=== PATIENT | female | born 1975 | race Caucasian/White ===

== ENCOUNTER 2017-10-02 10:11 | Emergency (ER) | payer MEDICARE, SELFPAY | END 2017-10-02 11:11 | disposition home or self-care (01) | PROVIDERS: Family Provider Nurse Practitioner Family | DX: J18.9 Pneumonia, unspecified organism (principal); Z90.49 Acquired absence of other specified parts of digestive tract; Z90.710 Acquired absence of both cervix and uterus; I25.10 Atherosclerotic heart disease of native coronary artery without angina pectoris; J45.909 Unspecified asthma, uncomplicated | CPT/HCPCS: 71020; 99201 ==

== ENCOUNTER 2017-11-06 09:29 | Emergency (ER) | payer MEDICARE, MEDICAID, SELFPAY ==
[2017-11-06 09:30] VITALS: BP 150/72; PULSE 98; RESP 18; TEMP 36.9; O2SAT 98; BMI 35.6
--- NOTE | 2017-11-06 09:45 | HMH.EDUTC ---
[facility] [facility] [place]: Upper respiratory infection Disposition: Home, Self-Care Condition on Discharge: Good Instructions: Cough, DI for Cough -- Adult, Guaifenesin Additional Instructions: * Monitor Temp. Tylenol and/or Ibuprofen as needed. ER if fever is no less than 101 despite alternating Tylenol and Ibuprofen * Encourage fluids, water, Gatorade, powerade, pedialyte if infant/toddler/or child * Warm salt water gargles for throat irritation *Warm fluids *Sore throat lozenges *Sleep elevated *humidifier or vaporizer Lots of rest Increase fluids, water, Gatorade, powerade Follow up IMMEDIATELY for new or worsening of symptoms OR no noticeable improvement over the next 48-72 hours. 911 immediately for any life threatening symptoms such as chest pain or difficulty breathing Prescriptions: Azithromycin [Z-Golden 250mg Tab] 250 mg PO UD DOSE PK #6 tab Guaifenesin/Pseudoephedrne HCl [Mucinex D ER 1,200-120 mg Tab] 1 each PO Q12H #20 tab.er.12h predniSONE [Prednisone 10mg Tab Dose-Pack] 10 mg PO UD DOSE PK #1 pack Promethazine/Dextromethorphan [Promethazine-Dm Syrup] 5 ml PO Q6H PRN #200 syrup PRN Reason: Cough Referrals: Adamaris Travis APRN [Primary Care Provider] - Time of Disposition: 09:58 Medical Decision Making - Medical Records Medical records reviewed: Yes: I reviewed the patient's medical records. Vital Signs: 11/06/17 09:30 Temperature 98.5 F Temperature Source Oral Pulse Rate [Left Brachial] 98 H Respiratory Rate 18 Blood Pressure [Right Arm] 150/72 Blood Pressure Mean [Right Arm] 98 Blood Pressure Source [Right Arm] Automatic Cuff Blood Pressure Position [Right Arm] Sitting 02 Sat by Pulse Oximetry 98 Oxygen Delivery Method Room Air - Hermilo Inquiry Pt receiving controlled substance: No Hermilo was queried for this patient: No - Reevaluation(s) Time: 09:52 (Recommended chest xray however paitnet refusing at this time states that she just had one a couple of weeks ago and she doesn't want to be exposed to that much radiation Patient educated on xrays and still refuse advised that she would follow up with family doctor next week if symptoms continued to feel like they was moving to her chest) [facility] [place] General Stated complaint: sinus,ear,sob Mode of Arrival: Ambulatory Source of Information: Patient Limitations: No Limitations Description of Symptoms (Recalled from Triage Doc. by RN): Pt advises she feels like she has an URI. c/o cough, ear pain HEENT Symptoms (Recalled from RN notes): No Resp Symptoms (Recalled from RN notes): Yes Skin Symptoms (Recalled from RN notes): No MS Symptoms (Recalled from RN notes): No Functional Status (Recalled from RN notes): NA - History of Present Illness Provider Complaint: Patient state that she has been having sinus pain and pressure and feeling like it is running down the back of her throat State that she has been having cough and congestion and over all not feeling well States symptoms began about 2-3 days ago and continued to get worse - Related Data Previous Rx's Medication Instructions Recorded Azithromycin [Z-Golden 250mg Tab] 250 mg PO UD DOSE PK #6 tab 11/06/17 Guaifenesin/Pseudoephedrne HCl 1 each PO Q12H #20 tab.er.12h 11/06/17 [Mucinex D ER 1,200-120 mg Tab] Promethazine/Dextromethorphan 5 ml PO Q6H PRN #200 syrup 11/06/17 [Promethazine-Dm Syrup] predniSONE [Prednisone 10mg Tab 10 mg PO UD DOSE PK #1 pack 11/06/17 Dose-Pack] Allergies Allergy/AdvReac Type Severity Reaction Status Date / Time pregabalin [From LYRICA] Allergy Mild Verified 11/06/17 09:43 - Worker's Comp Is this a Worker's Comp case?: No [facility] History I have reviewed the patient's past medical history: Yes Medical History: Denies:: Cancer, Diabetes Mellitus Type 1, Diabetes Mellitus Type 2, MRSA Amputation: No - *Social History Alcohol Intake: never - Psychiatric History Expresses thoughts of harming self/others: None Suicide Plan
--- NOTE | 2017-11-06 09:49 | ED_ITS ---
[facility] [place] Impression: Upper respiratory infection Disposition: Home, Self-Care Condition on Discharge: Good Instructions: Cough, DI for Cough -- Adult, Guaifenesin Additional Instructions: * Monitor Temp. Tylenol and/or Ibuprofen as needed. ER if fever is no less than 101 despite alternating Tylenol and Ibuprofen * Encourage fluids, water, Gatorade, powerade, pedialyte if infant/toddler/or child * Warm salt water gargles for throat irritation *Warm fluids *Sore throat lozenges *Sleep elevated *humidifier or vaporizer Lots of rest Increase fluids, water, Gatorade, powerade Follow up IMMEDIATELY for new or worsening of symptoms OR no noticeable improvement over the next 48-72 hours. 911 immediately for any life threatening symptoms such as chest pain or difficulty breathing Prescriptions: Azithromycin [Z-Golden 250mg Tab] 250 mg PO UD DOSE PK #6 tab Guaifenesin/Pseudoephedrne HCl [Mucinex D ER 1,200-120 mg Tab] 1 each PO Q12H # 20 tab.er.12h predniSONE [Prednisone 10mg Tab Dose-Pack] 10 mg PO UD DOSE PK #1 pack Promethazine/Dextromethorphan [Promethazine-Dm Syrup] 5 ml PO Q6H PRN #200 syrup PRN Reason: Cough Referrals: Adamaris Travis APRN [Primary Care Provider] - Time of Disposition: 09:58 Medical Decision Making - Medical Records Medical records reviewed: Yes: I reviewed the patient's medical records. Vital Signs: 11/06/17 09:30 Temperature 98.5 F Temperature Source Oral Pulse Rate [Left Brachial] 98 H Respiratory Rate 18 Blood Pressure [Right Arm] 150/72 Blood Pressure Mean [Right Arm] 98 Blood Pressure Source [Right Arm] Automatic Cuff Blood Pressure Position [Right Arm] Sitting 02 Sat by Pulse Oximetry 98 Oxygen Delivery Method Room Air - Hermilo Inquiry Pt receiving controlled substance: No Hermilo was queried for this patient: No - Reevaluation(s) Time: 09:52 (Recommended chest xray however paitnet refusing at this time states that she just had one a couple of weeks ago and she doesn't want to be exposed to that much radiation Patient educated on xrays and still refuse advised that she would follow up with family doctor next week if symptoms continued to feel like they was moving to her chest) [facility] [place] - General Stated complaint: sinus,ear,sob Mode of Arrival: Ambulatory Source of Information: Patient Limitations: No Limitations Description of Symptoms (Recalled from Triage Doc. by RN): Pt advises she feels like she has an URI. c/o cough, ear pain HEENT Symptoms (Recalled from RN notes): No Resp Symptoms (Recalled from RN notes): Yes Skin Symptoms (Recalled from RN notes): No MS Symptoms (Recalled from RN notes): No Functional Status (Recalled from RN notes): NA - History of Present Illness Provider Complaint: Patient state that she has been having sinus pain and pressure and feeling like it is running down the back of her throat State that she has been having cough and congestion and over all not feeling well States symptoms began about 2-3 days ago and continued to get worse - Related Data Previous Rx's Medication Instructions Recorded Azithromycin [Z-Golden 250mg Tab] 250 mg PO UD DOSE PK #6 tab 11/06/17 Guaifenesin/Pseudoephedrne HCl 1 each PO Q12H #20 tab.er.12h 11/06/17 [Mucinex D ER 1,200-120 mg Tab] Promethazine/Dextromethorphan 5 ml PO Q6H PRN #200 syrup 11/06/17 [Promethazine-Dm Syrup] predniSONE [Prednisone 10mg Tab 10 mg PO UD DOSE PK #1 pack 01
== END 2017-11-06 10:03 | disposition home or self-care (01) ==
PROVIDERS: Emergency Provider Nurse Practitioner; Family Provider Nurse Practitioner Family; PCP Nurse Practitioner Family
DX: J06.9 Acute upper respiratory infection, unspecified (principal)
CPT/HCPCS: G0463; 99201

== ENCOUNTER 2017-12-09 18:46 | Emergency (ER) | payer MEDICARE, MEDICAID, SELFPAY ==
[2017-12-09 18:56] VITALS: BP 136/86; PULSE 103; RESP 20; TEMP 36.2; O2SAT 95; BMI 34.6
--- NOTE | 2017-12-09 19:00 | HMH.EDUTC ---
[facility] [place] Clinical Impression: Vomiting Qualifiers: Vomiting type: unspecified Vomiting Intractability: non-intractable Nausea presence: with nausea Qualified Code(s): R11.2 - Nausea with vomiting, unspecified Disposition: Home, Self-Care Condition on Discharge: Good Additional Instructions: Return to clinic if PO Phenerghan not effective Prescriptions: Promethazine HCl [Phenergan 12.5mg tablet] 12.5 mg PO TIDP PRN 3 Days #12 tab PRN Reason: Vomiting Referrals: Adamaris Travis APRN [Primary Care Provider] - Medical Decision Making - Medical Records Medical records reviewed: Yes: I reviewed the patient's medical records. - Hermilo Inquiry Pt receiving controlled substance: No [facility] [place] - General Stated complaint: Vomiting Time Seen by Provider: 12/09/17 19:00 - History of Present Illness Provider Complaint: Patient states had vomiting and diarrhea 3 days ago that resolved within 24 hours. Saw PCP yesterday for head cold/left ear infection. Started on Keflex and steroids. Started vomiting again today. Has vomited all day. No diarrhea. No fever. Has taken Zofran without relief. No hematemesis or vomiting of stool. No abdominal pain. - Related Data Previous Rx's Medication Instructions Recorded Azithromycin [Z-Golden 250mg Tab] 250 mg PO UD DOSE PK #6 tab 11/06/17 Guaifenesin/Pseudoephedrne HCl 1 each PO Q12H #20 tab.er.12h 11/06/17 [Mucinex D ER 1,200-120 mg Tab] Promethazine/Dextromethorphan 5 ml PO Q6H PRN #200 syrup 11/06/17 [Promethazine-Dm Syrup] predniSONE [Prednisone 10mg Tab 10 mg PO UD DOSE PK #1 pack 11/06/17 Dose-Pack] Promethazine HCl [Phenergan 12.5mg 12.5 mg PO TIDP PRN 3 Days #12 tab 12/09/17 tablet] Allergies Allergy/AdvReac Type Severity Reaction Status Date / Time pregabalin [From LYRICA] Allergy Mild Verified 11/06/17 09:43 [facility] History Medical History: Reports:: Anxiety Denies:: Cancer, Diabetes Mellitus Type 1, Diabetes Mellitus Type 2, MRSA Other Medical History: Reports: Fibromyalgia Amputation: No - Social History Alcohol Intake: never ROS Obtained: Yes All systems reviewed & no additional complaints - Gastrointestinal Gastrointestingal: Reports: vomiting. Denies: diarrhea Physical Exam - General General appearance: alert, in no apparent distress - Head Head exam: atraumatic, normocephalic, normal inspection - Eye Eye exam: Present: normal appearance, PERRL, EOMI - ENT ENT exam: Present: normal exam, normal oropharynx, mucous membranes moist, TM's normal bilaterally, normal external ear exam - Neck Neck exam: Present: normal inspection, full ROM, trachea midline. Absent: meningismus, lymphadenopathy - Chest Chest inspection: Present: normal inspection, symmetric chest wall rise. Absent: tenderness - Respiratory Respiratory exam: Present: normal lung sounds bilaterally. Absent: respiratory distress - Cardiovascular Cardiovascular exam: Present: regular rate, normal rhythm. Absent: JVD - Abdominal Exam Abdominal exam: Present: soft, normal bowel sounds. Absent: distention, tenderness, guarding - Extremities Exam Extremities exam: Present: normal inspection, full ROM, normal capillary refill. Absent: calf tenderness - Back Exam Back exam: Present: normal inspection. Absent: tenderness - Neurological Exam Neurological exam: Present: alert, oriented X3 - Psychiatric Psychiatric exam: Present: normal affect, normal mood - Skin Skin exam: Present: warm, dry, intact, normal color - Lymphatic Lymphatic Findings: no adenopathy
--- NOTE | 2017-12-09 19:04 | ED_ITS ---
[facility] [place] Clinical Impression: Vomiting Qualifiers: Vomiting type: unspecified Vomiting Intractability: non-intractable Nausea presence: with nausea Qualified Code(s): R11.2 - Nausea with vomiting, unspecified Disposition: Home, Self-Care Condition on Discharge: Good Additional Instructions: Return to clinic if PO Phenerghan not effective Prescriptions: Promethazine HCl [Phenergan 12.5mg tablet] 12.5 mg PO TIDP PRN 3 Days #12 tab PRN Reason: Vomiting Referrals: Adamaris Travis APRN [Primary Care Provider] - Medical Decision Making - Medical Records Medical records reviewed: Yes: I reviewed the patient's medical records. - Hermilo Inquiry Pt receiving controlled substance: No [facility] [place] - General Stated complaint: Vomiting Time Seen by Provider: 12/09/17 19:00 - History of Present Illness Provider Complaint: Patient states had vomiting and diarrhea 3 days ago that resolved within 24 hours. Saw PCP yesterday for head cold/left ear infection. Started on Keflex and steroids. Started vomiting again today. Has vomited all day. No diarrhea. No fever. Has taken Zofran without relief. No hematemesis or vomiting of stool. No abdominal pain. - Related Data Previous Rx's Medication Instructions Recorded Azithromycin [Z-Golden 250mg Tab] 250 mg PO UD DOSE PK #6 tab 11/06/17 Guaifenesin/Pseudoephedrne HCl 1 each PO Q12H #20 tab.er.12h 11/06/17 [Mucinex D ER 1,200-120 mg Tab] Promethazine/Dextromethorphan 5 ml PO Q6H PRN #200 syrup 11/06/17 [Promethazine-Dm Syrup] predniSONE [Prednisone 10mg Tab 10 mg PO UD DOSE PK #1 pack 11/06/17 Dose-Pack] Promethazine HCl [Phenergan 12.5mg 12.5 mg PO TIDP PRN 3 Days #12 tab 12/09/17 tablet] Allergies Allergy/AdvReac Type Severity Reaction Status Date / Time pregabalin [From LYRICA] Allergy Mild Verified 11/06/17 09:43 [facility] History Medical History: Reports:: Anxiety Denies:: Cancer, Diabetes Mellitus Type 1, Diabetes Mellitus Type 2, MRSA Other Medical History: Reports: Fibromyalgia Amputation: No - Social History Alcohol Intake: never ROS Obtained: Yes All systems reviewed & no additional complaints - Gastrointestinal Gastrointestingal: Reports: vomiting. Denies: diarrhea Physical Exam - General General appearance: alert, in no apparent distress - Head Head exam: atraumatic, normocephalic, normal inspection - Eye Eye exam: Present: normal appearance, PERRL, EOMI - ENT ENT exam: Present: normal exam, normal oropharynx, mucous membranes moist, TM's normal bilaterally, normal external ear exam - Neck Neck exam: Present: normal inspection, full ROM, trachea midline. Absent: meningismus, lymphadenopathy - Chest Chest inspection: Present: normal inspection, symmetric chest wall rise. Absent : tenderness - Respiratory Respiratory exam: Present: normal lung sounds bilaterally. Absent: respiratory distress - Cardiovascular Cardiovascular exam: Present: regular rate, normal rhythm. Absent: JVD - Abdominal Exam Abdominal exam: Present: soft, normal bowel sounds. Absent: distention, tenderness, guarding - Extremities Exam Extremities exam: Present: normal inspection, full ROM, normal capillary refill. Absent: calf tenderness - Back Exam Back exam: Present: normal inspection. Absent: tenderness - Neurological Exam Neurological exam: Present: alert, oriented X3 - P
[2017-12-09 19:10] VITALS: BP 132/85; PULSE 98; RESP 18; TEMP 36.4; O2SAT 96
== END 2017-12-09 19:05 | disposition home or self-care (01) ==
PROVIDERS: Emergency Provider Physician Assistant; Family Provider Nurse Practitioner Family; PCP Nurse Practitioner Family
DX: R11.2 Nausea with vomiting, unspecified (principal); M79.7 Fibromyalgia; Z88.8 Allergy status to other drugs, medicaments and biological substances
CPT/HCPCS: G0463; 99202

== ENCOUNTER → 2018-04-27 15:35 | Outpatient (POV) | payer MEDICARE, MEDICAID, SELFPAY | PROVIDERS: Family Provider Nurse Practitioner Family; PCP Nurse Practitioner Family | DX: Z00.00 Encounter for general adult medical examination without abnormal findings (principal) ==

== ENCOUNTER → 2019-05-10 08:58 | Outpatient (CLI) | payer MEDICARE, MEDICAID, SELFPAY ==
--- NOTE | 2019-05-10 09:02 | MR_ITS ---
MR head/brain wo/w con HISTORY: ITS.REASON: BENIGN NEOPLASM MENINGES ORDERING PHYSICIAN: Adamaris Travis APRN PATIENT AGE: 43 years Comparison: 12/31/2014. TECHNIQUE: Standard multiplanar multiecho sequences are performed without and with contrast. FINDINGS: There are no areas of restricted diffusion. There is no acute hemorrhage or masses or extra-axial fluid collection. Ventricles, sulci, cortical areas and brain stem structures are normal. In the subcortical frontal lobe areas bilaterally there are a few punctate 1 mm foci of increased FLAIR signal without enhancement. There are no other areas of abnormal signal and there is no abnormal enhancement. The previously described 9.5 mm ossification or calcification over the superior left parietal area is likely extra-axial and not well seen by MRI. Specifically there is no extra-axial or intra-axial enhancing lesions. Visualized vessels are patent and area of the foramen magnum is normal. There is minimal fluid signal in the posterior sphenoid sinus. IMPRESSION: No acute process. Few subcortical white matter punctate foci of of abnormal signal likely from minimal chronic microvascular ischemic change or sequela of migraine headaches. No evidence of abnormal intra-axial or extra-axial enhancing lesion. Sphenoid sinus mild mucosal thickening.
== END ==
PROVIDERS: PCP Nurse Practitioner Family; Visit Provider Nurse Practitioner Family
DX: D32.9 Benign neoplasm of meninges, unspecified (principal)
CPT/HCPCS: 70553; A9576

== ENCOUNTER → 2019-06-08 10:06 | Outpatient (CLI) | payer MEDICARE, MEDICAID, SELFPAY ==
--- NOTE | 2019-06-08 10:10 | MM_ITS ---
PROCEDURE: MM DIG SCREENING MAMM BI W/CAD CLINICAL INDICATION: SCREENING There is no personal or family history of breast cancer COMPARISON: DIG MAMMO BILAT SCREENING from 03/30/2013 [facility] DIG MAMM-SCREEN JUAN RAMON from 03/07/2015 TECHNIQUE: Standard CC and MLO images were obtained. R2 CAD reviewed. FINDINGS: Scattered fibroglandular densities are seen in both breast primarily centrally. There is no suspicious lesion in either breast and no suspicious microcalcifications. IMPRESSION: Fibrofatty parenchyma with no suspicious lesions seen BI-RAD Category: 1 Negative FOLLOW-UP: 1YR 1 Year Follow-up (A letter has been sent to the patient regarding results of the study.) Dictated by: Dr. Darin Hart MD 06/10/2019 11:52 Signed by: <Electronically signed by Dr. Darin Hart MD in [place]> 06/10/2019 11:52
== END ==
PROVIDERS: PCP Nurse Practitioner Family; Visit Provider Nurse Practitioner Family
DX: Z12.31 Encounter for screening mammogram for malignant neoplasm of breast (principal)
CPT/HCPCS: 77067

== ENCOUNTER → 2019-09-04 10:26 | Outpatient (CLI) | payer MEDICARE, MEDICAID, SELFPAY ==
--- NOTE | 2019-09-04 10:31 | CT_ITS ---
PROCEDURE: CT CHEST WO/W CON CLINCAL INDICATION: SOB Shortness of breath, mid chest tightness COMPARISON: No exams were available for comparison TECHNIQUE: IV Contrast: 75ml Optiray 350 Axial images obtained with sagittal and coronal reformats. All CT scans at the facility use one or more dose reduction, viz: automated exposure control, ma/kV adjustment per patient size (including targeted exams where dose is matched to indication, i.e. head), or iterative reconstruction technique. FINDINGS: HEART,AORTA,PULMONARY ARTERIES there is thickening of the pericardium anteriorly measuring up to 7 date mm consistent with a small pericardial effusion. No mediastinal or hilar mass or adenopathy. MEDIASTINAL AND HILAR STRUCTURES: No mediastinal or hilar mass evident. No dominant adenopathy. LUNGS: There is scattered atelectatic changes and there is evidence of old granulomatous disease. PLEURAL SPACES: No significant effusion. No evidence of pneumothorax. BONY STRUCTURES: No acute bony abnormalities apparent. LYMPH NODES: No enlarged lymph nodes evident. UPPER ABDOMEN: Unremarkable. ADDITIONAL FINDINGS: No other significant abnormalities. IMPRESSION: 1. Small pericardial effusion. 2. Otherwise negative CT chest Dictated by: Hayes Mayer MD 09/06/2019 08:19 Electronically signed by Hayes Mayer MD in [place] 09/06/2019 08:19
== END ==
PROVIDERS: PCP Nurse Practitioner; Visit Provider Nurse Practitioner
DX: R06.02 Shortness of breath (principal)
CPT/HCPCS: 71270; Q9967

== ENCOUNTER → 2019-09-18 07:42 | Outpatient (CLI) | payer MEDICARE, MEDICAID, SELFPAY ==
--- NOTE | 2019-09-18 | CA_ITS ---
APPROVED REPORT Exam: Pharmacologic Technologist: Su Viera Ht: 5 ft 5 in Wt: 210 lbs BSA: 2.02 m2 HR: 87 bpm BP: 157/102 mmHg Indications: Chest pain, Shortness of Breath Medical History Medications: Xanax,,,,, Zofran,,,,, INHALER,,,,, Stress Test Details Test: LEXISCAN HR Resting HR: 97 bpm Max Heart Rate (APMHR): 174 bpm Max HR Achieved: 138 bpm Target HR (85% APMHR): 147 bpm % of APMHR: 79 Recovery HR: 115 bpm BP Resting BP: 157.0/102.0 mmHg Max BP: 162.0/105.0 mmHg Recovery BP: 156.0/106.0 mmHg ECG Clinical Exercise duration: 04:01 min Highest Stage Achieved: Stress ECG Conclusion Resting ECG: Sinus rhythm Lexiscan portion completed. Symptoms: Chest pain at peak infusion, resolved in recovery. No shortness of breath. Arrhytmias/Ectopy: Occasional PVC ST-T Changes: Less than 1.[address] depression. Conclusion: Images to follow. Test Summary RECOVERY 04:36 . . 117 . 156/106 . . REST 06:56 . . 97 . 157/102 . . Stage 1 01:00 . . 138 . . . . Stage 2 01:00 . . 132 . 162/105 . . Stage 3 01:00 . . 128 . 149/102 . . Stage 4 01:00 . . 122 . 159/103 . . Stage 4 01:01 . . 123 . 159/103 . Stop exercise at 04:01 RECOVERY 01:00 . . 128 . 159/ 97 . . RECOVERY 02:00 . . 118 . 159/ 97 . . RECOVERY 03:00 . . 115 . 147/102 . . RECOVERY 04:00 . . 121 . 160/ 98 . . RECOVERY 04:36 . . 117 . 156/106 . . Electronically signed by : Kaveh Montelongo, 09/18/2019 19:47:04
--- NOTE | 2019-09-18 08:14 | CA_ITS ---
APPROVED REPORT EXAM: Comprehensive 2D, Doppler, and color-flow Echocardiogram Surfboard Designer: Taylor Gomez RDCS Ht: 5 ft 5 in Wt: 211lbs BSA: 2.02 BP: 162/100 mmHg Indications: Chest Pain, Shortness of Breath, Hypertension/HDD 2D Dimensions LVOT 2.05 cm (M/F) 1.5-2.5 M-Mode Dimensions RVDd 2.62 cm (0.9-2.6) LVDd 5.35 cm (3.5-5.7) LVDs 4.27 cm (3.5-5.7) IVSd 1.11 cm (0.6-1.1) PWd 1.00 cm (0.6-1.1) EF (Teich) 40.90% FS 20.20% EDV (Teich) 138.30 mL ESV (Teich) 81.70 mL LV Diastology E/A Ratio 0.72 Mitral Valve MV A Velocity 69.00 (40-130 cm/s) Left Ventricle Left atrium is mildly enlarged, left ventricle is normal size, mild concentric left ventricular hypertrophy, visually estimated ejection fraction 55% with no regional wall motion abnormality, grade 1 diastolic dysfunction seen without tissue Doppler evidence of raise left atrial pressure. Right Ventricle Right atrium and right ventricular normal size and contractility. Aortic Valve Aortic valve is minimally thickened and fibrosed, there is no aortic stenosis or aortic insufficiency. Mitral Valve Mitral valve leaflets are minimally thickened, there is no mitral stenosis, there is moderate mitral regurgitation. Tricuspid Valve Tricuspid valve is grossly normal, there is mild tricuspid regurgitation. Tricuspid regurgitation jet velocity is inadequate for calculation of the right ventricular systolic pressure. Pulmonic Valve Pulmonic valve is poorly visualized. Great Vessels Aortic root is normal size. Pericardium No significant pericardial effusion noted. Conclusion 1. Mildly enlarged left atrium, normal left ventricular size, mild concentric left ventricular hypertrophy, visually estimated ejection fraction 55% with no regional wall motion abnormality, grade 1 diastolic dysfunction seen without tissue Doppler evidence of raise left atrial pressure. 2. Moderate mitral and mild tricuspid regurgitation. 3. No significant pericardial effusion noted. Electronically signed by : Kaveh Montelongo, 09/18/2019 21:14:57
--- NOTE | 2019-09-18 08:18 | NM_ITS ---
APPROVED REPORT Exam: Nuclear Stress Test Indication: Chest pain, SOB, HTN, High cholesterol, Family history Patient Location: Outpatient Stress Tech: Su Viera [place] Tech:Mayra Milner, ARRT, RT (R)(N) Ht: 5 ft 5 in Wt: 210 lbs Bra Size: 40B HR: 87 bpm BP: 157/102 mmHg BSA: 2.02 m2 BMI: 34.9 History: Chest pain, SOB, HTN, High cholesterol, Family history Procedure: Patient received a 0.4 mg of intravenous Lexiscan, resting heart rate 87 bpm, resting blood pressure 157/102 mmHg, with Lexiscan maximum heart rate achived was 132 bpm which is Less than 85 % of the maximum predicted heart rate and blood pressure was 162/105 mmHg. Electrocardiogram Resting electric cardiogram showed sinus rhythm, with Lexiscan there is less than 1.[address] segment depression noted from the baseline EKG. The EKG portion of the Lexiscan Myoview is nondiagnostic. Cardiac Stress and Resting SPECT Images: Cardiac Stress and Resting SPECT images were obtained using technetium 99m Myoview 29.8 mCi stress and 9.53 mCi at rest. Gated SPECT for analysis of segmental wall motion and calculation of the ejection fraction also done. Cardiac stress and resting SPECT images show uniform myocardial activity without segmental perfusion abnormality, computer derived ejection fraction is over 65% with no regional wall motion abnormality, right ventricle is normal size and contractility. Conclusion: 1. The EKG portion of the Lexiscan Myoview is nondiagnostic. 2. No scintigraphic evidence of reversible ischemia seen, computer derived ejection fraction is over 65% with no regional wall motion abnormality, right ventricle is normal size and contractility. 3. Normal Lexiscan Myoview study. Electronically signed by : Kaveh Montelongo, 09/18/2019 19:49:39
--- NOTE | 2019-09-18 08:18 | HMH.ITSHM ---
Current Home Medications as stated by this patient Rena Kaplan or contact representative. []XANEX ZOFRAN INHALER
== END ==
PROVIDERS: PCP Nurse Practitioner; Visit Provider Nurse Practitioner Family
DX: I31.3 Pericardial effusion (noninflammatory) (principal); R06.00 Dyspnea, unspecified; R07.9 Chest pain, unspecified
CPT/HCPCS: 78452; 93017; 93306; A9502; J2785

== ENCOUNTER → 2020-04-26 15:04 | Outpatient (CLI) | payer MEDICARE, MEDICAID, SELFPAY ==
[2020-04-26 15:24] LABS: Basophils # 0.1 K/mm3 (0-0.2); Basophils % 0.9 % (0.1-2.0); Eosinophils # 0.2 K/mm3 (0.0-0.4); Eosinophils % 2.6 % (0.1-12.0); Hematocrit 43.5 % (37.0-47.0); Hemoglobin 14.6 g/dL (12.2-16.2); Lymphocytes % 32.9 % (10-50); Mean Corpuscular HGB Conc 33.6 g/dL (31.8-35.4); Mean Corpuscular Volume 92.2 fl (81-99); Mean Platelet Volume 7.4 fl (7.4-10.4); Monocytes # 0.3 K/mm3 (0.1-1.0); Monocytes % 3.3 % (1.7-9.3); Neutrophils # 5.5 K/mm3 (1.8-7.8); Neutrophils % 60.2 % (37.0-80.0); Platelet Count 383 K/mm3 (142-424); Red Blood Count 4.72 M/mm3 (4.20-5.40); Red Cell Distribution Width 13.7 % (11.5-17.5); White Blood Count 9.2 K/mm3 (4.8-10.8)
[2020-04-26 16:03] LABS: Alanine Aminotransferase 30 U/L (12-78); Albumin Level 3.6 g/dl (3.5-5.0); Albumin/Globulin Ratio 1.2 (1.1-1.8); Alkaline Phosphatase 70 U/L (38-126); Anion Gap 8.8 mEq/L (5-15); Aspartate Amino Transferase 38 U/L (14-36); Bilirubin,Total 0.5 mg/dl (0.2-1.3); Blood Urea Nitrogen 7 mg/dl (7-17); Calcium 9.3 mg/dl (8.4-10.2); Carbon Dioxide 28 mmol/L (22.0-30.0); Chloride 105 mmol/L (98-107); Estimated Glomerular Filt Rate 77 ml/min (>60); GFR (African American) 93 ML/MIN (>60); Glucose 98 mg/dl (74-100); Potassium 3.8 mmoL/L (3.5-5.1); Sodium 138 mmol/L (136-145); Total Protein,Serum 6.6 g/dl (6.3-8.2)
[2020-04-26 16:33] LABS: Thyroid Stimulating Hormone 1.31 uIU/mL (0.465-4.68)
[2020-04-28 09:23] LABS: DHEA-Sulfate 95.8 ug/dL (41.2-243.7)
[2020-04-28 10:48] LABS: LH 46.6 mIU/mL (.)
== END ==
PROVIDERS: Visit Provider Nurse Practitioner
DX: R53.82 Chronic fatigue, unspecified (principal)
CPT/HCPCS: 36415; 80053; 82626; 83001; 83002; 84443; 85025

== ENCOUNTER → 2020-04-27 09:22 | Outpatient (CLI) | payer MEDICARE, MEDICAID, SELFPAY ==
[2020-04-29 14:40] LABS: Adrenocorticotropic Hormone 16.3 pg/mL (7.2-63.3)
== END ==
PROVIDERS: PCP Nurse Practitioner; Visit Provider Nurse Practitioner
DX: R53.82 Chronic fatigue, unspecified (principal)
CPT/HCPCS: 82024

== ENCOUNTER 2020-06-21 18:10 | Emergency (ER) | payer MEDICARE, MEDICAID, SELFPAY ==
[2020-06-21 18:32] VITALS: BP 142/90; PULSE 80; RESP 18; TEMP 36.7; O2SAT 99; BMI 33.3
--- NOTE | 2020-06-21 18:41 | HMH.EDUTC ---
[facility] [place] Disposition Clinical Impression: Sinusitis Qualifiers: Sinusitis location: unspecified location Chronicity: unspecified Qualified Code(s): J32.9 - Chronic sinusitis, unspecified Disposition: Home, Self-Care Condition on Discharge: Good Instructions: Sinusitis, Sinus Headache, DI for Sinusitis Additional Instructions: *Monitor Temp, Over the counter Motrin or Tylenol as directed/as needed Tylenol every 4 hours and Motrin every 6 hours (as long as your family doctor has told you that you can take it) for fever or pain. and straight to ER if unable to lower temp less than 101.0 after medication given *Warm salt water gargles may help to soothe the throat *Throat Lozenges *Warm fluids like tea with honey may help to soothe the throat *Sleep elevated *Humidifier/Vaporizer *Flonase 2 sprays in each nostril daily but be aware that it may take 2-3 days before you notice improvement Take medication as prescribed Follow up IMMEDIATELY for new or worsening symptoms or no Noticeable improvement over the next 48-72 hours. 911 for difficulty breathing or swallowing Prescriptions: Amoxicillin/Potassium Clav [Augmentin 875-125 Tablet] 1 tab PO Q12H 10 Days #20 tab Transmission Status: Pending to [facility] # methylPREDNISolone [Medrol 4mg tab] 4 mg PO DIRECTED #21 tab Transmission Status: Pending to [facility] # Referrals: Martine Calderón APRN [Primary Care Provider] - As needed Time of Disposition: 19:21 Medical Decision Making - Hermilo Inquiry Pt receiving controlled substance: No Hermilo was queried for this patient: No Vital Signs: 06/21/20 18:32 Temperature 98.1 F Temperature Source Oral Pulse Rate [Right Brachial] 80 Respiratory Rate 18 Blood Pressure [Right Arm] 142/90 H Blood Pressure Mean [Right Arm] 107 Blood Pressure Source [Right Arm] Automatic Cuff Blood Pressure Position [Right Arm] Sitting 02 Sat by Pulse Oximetry 99 Oxygen Delivery Method Room Air [facility] [place] HPI - General Stated complaint: coufg,congestion,sinus Time Seen by Provider: 06/21/20 18:41 Mode of Arrival: Ambulatory Source of Information: Patient Limitations: No Limitations Description of Symptoms (Recalled from Triage Doc. by RN): PATIENT C/O COUGH, SINUS, AND CHEST CONGESTION X 1 WEEK. HEENT Symptoms (Recalled from RN notes): Yes Resp Symptoms (Recalled from RN notes): Yes Skin Symptoms (Recalled from RN notes): No MS Symptoms (Recalled from RN notes): No Functional Status (Recalled from RN notes): WNL - History of Present Illness Provider Complaint: Patient states she hasnt been feeling well for over a week States that she has been having sinus pain and pressure feeling like it was draining in the back of her throat into her chest area States that she has been having cough and over all not feeling well States that she has had sinus infections in the past and she was worried that it was going to move into her chest and wanted to come in and get medication before it got worse - Related Data Home Medications Medication Instructions Recorded Confirmed alprazolam 0.5 mg tablet 0.5 mg PO BID 11/16/18 11/19/19 lisinopril 10 mg tablet 10 mg PO DAILY 09/20/19 11/19/19 Previous Rx's Medication Instructions Recorded Albuterol Sulfate [Albuterol HFA 2 puffs IH Q6HP PRN #1 inh 08/14/19 Inhaler] Amoxicillin/Potassium Clav 1 tab PO Q12H 10 Days #20 tab 11/19/19 [Augmentin 875-125 Tablet] Benzonatate [Tessalon Perle 100mg 100 mg PO TIDP PRN #30 cap 11/19/19 Cap] predniSONE [Prednisone 20mg 20 mg PO BID 4 Days #8 tab 11/19/19 Tab] Amoxicillin/Potassium Clav 1 tab PO Q12H 10 Days #20 tab 06/21/20 [Augmentin 875-125 Tablet] methylPREDNISolone [Medrol 4mg 4 mg PO DIRECTED #21 tab 06/21/20 tab] Allergies Allergy/AdvReac Type Severity Reaction Status Date / Time pregabalin [From [facility]] Allergy Mild Verified 09/11/19 09:08 - Worker's Comp Is this a Worker's
[2020-06-21 19:30] VITALS: BP 142/90; PULSE 80; RESP 18; TEMP 36.7; O2SAT 99
== END 2020-06-21 19:31 | disposition home or self-care (01) ==
PROVIDERS: Emergency Provider Nurse Practitioner; PCP Nurse Practitioner
DX: J32.9 Chronic sinusitis, unspecified (principal); I10 Essential (primary) hypertension; G43.709 Chronic migraine without aura, not intractable, without status migrainosus; E78.5 Hyperlipidemia, unspecified; F41.9 Anxiety disorder, unspecified; J45.909 Unspecified asthma, uncomplicated; Z90.49 Acquired absence of other specified parts of digestive tract; Z90.710 Acquired absence of both cervix and uterus; Z79.899 Other long term (current) drug therapy
CPT/HCPCS: G0463; 99201

== ENCOUNTER 2020-06-26 19:14 | Emergency (ER) | payer MEDICARE, MEDICAID, SELFPAY ==
[2020-06-26 19:35] VITALS: BP 139/92; PULSE 81; RESP 19; TEMP 36.5; O2SAT 99; BMI 33.3
--- NOTE | 2020-06-26 19:42 | HMH.EDUTC ---
[facility] [place] Disposition Clinical Impression: Otitis media Qualifiers: Otitis media type: unspecified Laterality: bilateral Qualified Code(s): H66.93 - Otitis media, unspecified, bilateral Upper respiratory infection Qualifiers: URI type: unspecified URI Qualified Code(s): J06.9 - Acute upper respiratory infection, unspecified Disposition: Home, Self-Care Condition on Discharge: Good Instructions: Middle Ear Infection, Cough, DI for Cough -- Adult, Ofloxacin Otic Additional Instructions: ? Continue antibiotic Be sure to complete entire prescription even if feeling better ? Monitor temp. Tylenol every 4 hours as needed and / or ibuprofen every 6 hours as needed ( As long as your primary care physician has told you that it ok to take both. For fever/aches/pains ER if no less than 101 despite Tylenol or Motrin ? Humidifier/vaporizer or hot steamy shower ? Inhaler every 4-6 hours as needed like we discussed. If unsure how to use it, ask pharmacist to demonstrate how. Should help open airways and improve cough, wheezing, and shortness of breath ? Mucinex during the day for your cough and cough suppressant only at night. Be sure to drink lots of water. Insurance may not cover a prescriptions for mucinex. Might be cheaper to get 400mg tablets and take 2 tablet in the morning, mid-day and evening with lots of water. *Tessalon Perles will not cause drowsiness but use at bedtime to help stop cough so that you may get some rest. Use drops in ear as prescribed Follow up IMMEDIATELY for new or worsening of symptoms OR no noticeable improvement over the next 48-72 hours. 911 immediately for any life threatening symptoms such as chest pain or difficulty breathing You was tested for COVID call back to the [facility] in the next 48-72 hours to see if your results are back You was given handout with instructions make sure to follow them to help prevent the spread of COVID Prescriptions: Albuterol Sulfate [Proventil-HFA 90mcg/puff Inh] 1 - 2 puffs IH Q4HP PRN #1 inh PRN Reason: Shortness Of Breath Transmission Status: Sent to [facility][id number] Ofloxacin [Floxin 0.3% OTIC Solution 5mL] 10 drops EAR-BOTH BID 14 Days #1 bottle Transmission Status: Sent to [facility] # Benzonatate [Tessalon Perle 100mg Cap*] 100 mg PO TID PRN #15 cap PRN Reason: Cough Transmission Status: Sent to [facility] # Referrals: Martine Calderón, [employer] [Primary Care Provider] - As needed Time of Disposition: 19:58 Medical Decision Making - Hermilo Inquiry Pt receiving controlled substance: No Hermilo was queried for this patient: No Vital Signs: 06/26/20 19:35 Temperature 97.7 F Temperature Source Oral Pulse Rate [Radial] 81 Respiratory Rate 19 Blood Pressure [Right Arm] 139/92 H Blood Pressure Mean [Right Arm] 107 Blood Pressure Source [Right Arm] Automatic Cuff Blood Pressure Position [Right Arm] Sitting 02 Sat by Pulse Oximetry 99 Oxygen Delivery Method Room Air Orders (Tests/Meds): ORDERS Category Date Time Status Covid-19 Nasal PCR Sendout Pb Stat Lab 06/26/20 19:54 Received Medical Decision Narrative: Recommended chest xray and patient declined and didnt want to wait, patient educated to make sure that she is drinking plenty of fluids, taking medication as prescribed and follow up with Family doctor if no improvement [facility] [place] HPI - General Stated complaint: Coughing;, SOB Time Seen by Provider: 06/26/20 19:42 Mode of Arrival: Ambulatory Source of Information: Patient Limitations: No Limitations Description of Symptoms (Recalled from Triage Doc. by RN): dry cough HEENT Symptoms (Recalled from RN notes): No Resp Symptoms (Recalled from RN notes): Yes Skin Symptoms (Recalled from RN notes): No MS Symptoms (Recalled from RN notes): No Functional Status (Recalled from RN notes): wnl - History of Present Illness Provider Complaint: Patient states that she was seen about a week ago and given Augmentin States that sh
[2020-06-26 20:01] VITALS: BP 139/92; PULSE 81; RESP 19; TEMP 36.5; O2SAT 99
[2020-06-28 13:33] LABS: Covid-19 Nasal PCR Sendout Lex Not Detected
== END 2020-06-26 20:04 | disposition home or self-care (01) ==
PROVIDERS: Emergency Provider Nurse Practitioner; PCP Nurse Practitioner
DX: H66.93 Otitis media, unspecified, bilateral (principal); J06.9 Acute upper respiratory infection, unspecified; Z03.818 Encounter for observation for suspected exposure to other biological agents ruled out; E78.5 Hyperlipidemia, unspecified; I10 Essential (primary) hypertension; G43.709 Chronic migraine without aura, not intractable, without status migrainosus; M79.7 Fibromyalgia; Z90.49 Acquired absence of other specified parts of digestive tract; Z90.710 Acquired absence of both cervix and uterus; Z79.899 Other long term (current) drug therapy
CPT/HCPCS: G0463; 99201; U0004

== ENCOUNTER → 2021-03-26 19:00 | Outpatient (CLI) | payer MEDICARE, MEDICAID, SELFPAY | PROVIDERS: PCP Nurse Practitioner; Visit Provider Surgery | DX: Z01.812 Encounter for preprocedural laboratory examination (principal); Z11.52 Encounter for screening for COVID-19 | CPT/HCPCS: U0003 ==

== ENCOUNTER 2021-03-28 09:02 | Day surgery (SDC) | payer MEDICARE, MEDICAID, SELFPAY ==
[2021-03-20 13:57] VITALS: BMI 33.6
[2021-03-28 09:18] VITALS: BP 127/77; PULSE 92; RESP 18; TEMP 37.3; O2SAT 98
[2021-03-28 10:20] VITALS: BP 133/98; PULSE 83; RESP 18; O2SAT 97
--- NOTE | 2021-03-28 10:24 | HMH.OPNOTE ---
Date of procedure: 03/28/21 Pre-op Diagnosis:: 1 cm right lower abdominal wall skin neoplasm of uncertain behavior Skin neoplasm of uncertain behavior-back (x7) -ranging from 3 to 5 mm Post-op Diagnosis:: Same Procedure performed:: Excision of 1 cm right lower abdominal skin neoplasm Punch biopsies of skin neoplasms along back (x7) Surgeon:: Rai Francisco MD Anesthesia: local Estimated blood loss (mL): 5 Operative findings:: All lesions excised with minimal margin Operative note:: After informed consent was obtained the patient was taken to the procedure room and placed in the supine position. Her right lower abdominal wall was prepped and draped in a sterile fashion. After infiltration local anesthetic an elliptical incision was made around the lesion. The deep subcutaneous tissue was sharply dissected. The lesion was excised in toto and passed off for pathologic evaluation. Thermal cautery was utilized to achieve hemostasis. Skin was reapproximated with interrupted 4-0 nylon. Antibiotic ointment and a pressure dressing was applied. She was then transferred to a seated position. Her back was prepped and draped in a sterile fashion. 1% lidocaine was infiltrated in all 7 skin lesion sites. The right mid/lateral skin lesion was excised by way of punch biopsy. This was labeled as #1 of 7. The additional lesions were in the form of a arc ending with lesion #7 in the mid lower back. All lesions were excised by way of punch biopsy. A single 4-0 nylon was utilized at all 7 sites for reapproximation of skin. Antibiotic ointment and a pressure dressing was applied. The patient was discharged in stable condition. Condition: stable Disposition: no change Specimens:: Right lower abdominal skin neoplasm Back skin neoplasm #1 of 7-right mid/lateral back (Punch biopsy) Back skin neoplasm #2 of 7 (Punch biopsy) Back skin neoplasm #3 of 7 (Punch biopsy) Back skin neoplasm #4 of 7 (Punch biopsy) Back skin neoplasm #5 of 7 (Punch biopsy) Back skin neoplasm #6 of 7 (Punch biopsy) Back skin neoplasm #7 of 7-mid/lower back (Punch biopsy) Complications:: No immediate
[2021-03-28 10:30] VITALS: BP 133/98; PULSE 83; RESP 18; TEMP 36.7; O2SAT 97
== END 2021-03-28 10:30 | disposition home or self-care (01) ==
LOC: OUTP 09:03
PROVIDERS: PCP Nurse Practitioner; Visit Provider Surgery
DX: L82.1 Other seborrheic keratosis (principal); D22.5 Melanocytic nevi of trunk; Z79.899 Other long term (current) drug therapy; F41.9 Anxiety disorder, unspecified; J45.909 Unspecified asthma, uncomplicated; E78.5 Hyperlipidemia, unspecified; I10 Essential (primary) hypertension; G43.909 Migraine, unspecified, not intractable, without status migrainosus; M79.18 Myalgia, other site; Z82.3 Family history of stroke; Z82.49 Family history of ischemic heart disease and other diseases of the circulatory system
CPT/HCPCS: 11104; 11105 ×6; 88305

== ENCOUNTER → 2021-05-08 10:03 | Outpatient (CLI) | payer MEDICARE, MEDICAID, SELFPAY ==
--- NOTE | 2021-05-08 10:21 | MR_ITS ---
PROCEDURE: MR HEAD/BRAIN WO/W CON CLINICAL INDICATION: MENINGIOMA TECHNIQUE: Multiplanar, multisequence MRI brain performed with both pre- and post-contrast imaging. Contrast: 19 mL of ProHance. FINDINGS: No restricted diffusion is present to suggest an acute infarct.There is no space-occupying or enhancing mass lesion and no abnormal fluid collection.There is no abnormal post-contrast enhancement.There is no evidence of hemorrhage. There is a focal prominence of the left frontal extra-axial space measuring approximately 1.9 centimeters. No abnormal enhancement is noted. This most likely represents an arachnoid cyst. No other abnormal enhancing focal lesions are noted. Ventricles: The Ventricles are within normal limits for size, configuration, and symmetry. Volume: Brain parenchymal volume is appropriate for age. Multiphasic dynamic contrast-enhanced images through the pituitary gland demonstrate no focal evidence of hypoenhancing lesions. No evidence of micro adenomas noted. The pituitary stalk is midline. Anterior and posterior pituitary glands demonstrate normal signal intensity without evidence of focal abnormalities Osseous: Unremarkable Sinuses: The paranasal sinuses are clear bilaterally. Mastoids: Partial opacification of the left mastoid air cells are noted. IMPRESSION: 1. No evidence of acute intracranial process. Findings are suggestive of an arachnoid cyst in the left frontal extra-axial space. No focal enhancing mass lesions. Dictated by: Maddi Harman 05/08/2021 13:23 Maddi Harman in [facility] 05/08/2021 13:23
[2021-05-08 10:39] LABS: Blood Urea Nitrogen 9 mg/dl (7-17); Estimated Glomerular Filt Rate 77 ml/min (>60); GFR (African American) 93 ML/MIN (>60)
== END ==
PROVIDERS: PCP Nurse Practitioner; Visit Provider Psychiatry & Neurology Neurology
DX: D32.9 Benign neoplasm of meninges, unspecified (principal)
CPT/HCPCS: 36415; 70553; 82565; 84520; A9576

== ENCOUNTER 2021-06-19 15:20 | Emergency (ER) | payer MEDICARE, MEDICAID, SELFPAY ==
[2021-06-19 16:58] VITALS: BP 146/95; PULSE 122; RESP 22; TEMP 37.2; O2SAT 95; BMI 34.4
--- NOTE | 2021-06-19 17:18 | HMH.EDUTC ---
[facility] Disposition Clinical Impression: Strep throat, Viral syndrome Asthma exacerbation Qualifiers: Asthma severity: unspecified severity Asthma persistence: unspecified Qualified Code(s): J45.901 - Unspecified asthma with (acute) exacerbation Disposition: Home, Self-Care Condition on Discharge: Good Instructions: DI for Asthma -- Adult, DI for Strep Throat, DI for COVID-19 (Suspected or Confirmed ), Preventing the Spread of Coronavirus Discharge Instructions Additional Instructions: Drink plenty of fluids. Take tylenol or ibuprofen for pain or fever. Take the medications as directed. Follow up with your regular doctor. GO TO THE ER FOR ANY WORSENING SYMPTOMS Throw your tooth brush away and get a new one. Quarantine until you know the results of your covid-19 test. If it is positive, the health department should call you and give you further instructions about your length of Quarantine and other things. Notify your school or workplace of your results and follow their instructions regarding return to work/school. Don't start the oral steroids until tomorrow, since you had the shot here today. The cough medication (promethazine dm) will make you drowsy, so don't drive or operate heavy machinery after taking it. Prescriptions: Promethazine/Dextromethorphan [Promethazine-Dm Syrup] 5 ml PO Q6HP PRN #240 ml PRN Reason: Cough Transmission Status: Received by [facility] # methylPREDNISolone [Medrol] 4 mg PO DIRECTED 6 Days #21 packet Transmission Status: Received by [facility] # Benzonatate [Tessalon Perle 100mg Cap] 100 mg PO TIDP PRN #30 cap PRN Reason: Cough Transmission Status: Received by [facility] # Azithromycin [Z-Golden 250mg Tab*] 250 mg PO UD DOSE PK #6 tab Transmission Status: Received by [facility] # Referrals: Martine Calderón APRN [Primary Care Provider] - Time of Disposition: 17:31 Medical Decision Making - Medical Records Medical records reviewed: No: I reviewed the patient's medical records. - Hermilo Inquiry Pt receiving controlled substance: No Vital Signs: 06/19/21 16:58 06/19/21 17:35 Temperature 99 F 99.0 F Temperature Source Oral Pulse Rate 122 H Pulse Rate [Left] 122 H Respiratory Rate 22 22 Blood Pressure 146/95 H Blood Pressure [Right Arm] 146/95 H Blood Pressure Mean [Right Arm] 112 02 Sat by Pulse Oximetry 95 Oxygen Delivery Method Room Air - Lab Data Lab results reviewed: Yes: I reviewed the patient's lab results. Lab Results 06/19/21 16:55: Chlamy pneumoniae PCR Not detected, Adenovirus (PCR) Not detected, B. pertussis DNA (PCR) Not detected, Coronavirus OC43 (PCR) Not detected, Coronavirus HKU1 (PCR) Not detected, Coronavirus 229E (PCR) Not detected, SARS-CoV-2 (PCR) Detected A, Coronavirus NL63 (PCR) Not detected, Human Metapneumovir PCR Not detected, Influenza A (H1) PCR Not detected, Influ A (H1N1/09) PCR Not detected, Influenza A (H3) PCR Not detected, Influenza Type A (PCR) Not detected, Influenza Type B (PCR) Not detected, M. pneumoniae (PCR) Not detected, Parainfluenza 1 (PCR) Not detected, Parainfluenza 2 (PCR) Not detected, Parainfluenza 3 (PCR) Not detected, Parainfluenza 4 (PCR) Not detected, RSV (PCR) Not detected, Entero/Rhino (PCR) Not detected 06/19/21 17:09: Strep Scn Rapid Clinic Positive A Orders (Tests/Meds): ED MEDICATIONS Discontinued Medications Generic Name Dose Route Start Last Admin Trade Name Freq PRN Reason Stop Dose Admin Ceftriaxone Sodium 1 gm 06/19/21 17:18 06/19/21 17:30 Ceftriaxone 1gm Vial IM 06/19/21 17:19 1 gm ONCE ONE Administration Lidocaine HCl 0 ml 06/19/21 17:18 06/19/21 17:30 Lidocaine 1% 5ml Pf Vial IM 06/19/21 17:19 2.1 ml ONCE ONE Administration Methylprednisolone Sodium Succinate 125 mg 06/19/21 17:18 06/19/21 17:30 Methylprednisolone Sod Succ 125mg Vial IM 06/19/21 17:19 125 mg ONCE ONE
[2021-06-19 17:22] LABS: Adenovirus,PCR Not Detected (NotDetected); Bordetella Pertussis Not Detected (NotDetected); Chlamydophila Pneumoniae, PCR Not Detected (NotDetected); Coronavirus 229E Not Detected (NotDetected); Coronavirus NL63 Not Detected (NotDetected); Coronavirus OC43 Not Detected (NotDetected); Coronovirus HKU1,PCR Not Detected (NotDetected); Human Metapneumovirus Not Detected (NotDetected); Influenza A, PCR Not Detected (NotDetected); Influenza AH1, 2009 Not Detected (NotDetected); Influenza AH1, PCR Not Detected (NotDetected); Influenza AH3,PCR Not Detected (NotDetected); Influenza B, PCR Not Detected (NotDetected); Mycoplasma Pneumoniae, PCR Not Detected (NotDetected); Parainfluenza 1, PCR Not Detected (NotDetected); Parainfluenza 2, PCR Not Detected (NotDetected); Parainfluenza 3, PCR Not Detected (NotDetected); Parainfluenza 4, PCR Not Detected (NotDetected); Respiratory Syncytial Virus Not Detected (NotDetected); Rhinovirus/Enterovirus Not Detected (NotDetected)
[2021-06-19 17:35] VITALS: BP 146/95; PULSE 122; RESP 22; TEMP 37.2; O2SAT 95
[2021-06-19 17:40] LABS: UTC Strep Screen (Rapid) Positive (Negative)
[2021-06-19 21:13] LABS: Coronavirus 19, PCR Detected (NotDetected)
--- NOTE | 2021-06-20 09:50 | PC.NURSE ---
notified pt of positive covid test results
== END 2021-06-19 17:40 | disposition home or self-care (01) ==
PROVIDERS: Emergency Provider Nurse Practitioner Family; PCP Nurse Practitioner
DX: U07.1 COVID-19 (principal); J02.0 Streptococcal pharyngitis; J45.901 Unspecified asthma with (acute) exacerbation; I10 Essential (primary) hypertension; F41.9 Anxiety disorder, unspecified; M79.7 Fibromyalgia; Z79.899 Other long term (current) drug therapy
CPT/HCPCS: G0463; 87581; 87633; 87798; 87880; 96372; 99202

== ENCOUNTER 2021-07-03 09:01 | Emergency (ER) | payer MEDICARE, MEDICAID, SELFPAY ==
[2021-07-03 09:23] VITALS: PULSE 124; RESP 16; TEMP 36.9; O2SAT 96; BMI 32.3
--- NOTE | 2021-07-03 09:24 | XR_ITS ---
PROCEDURE: XR CHEST PORTABLE CLINICAL HISTORY: cough COMPARISON: CR CXR CHEST(2 VIEWS-NOT PORTABLE) from 01/14/2016 CR CXR CHEST(2 VIEWS-NOT PORTABLE) from 10/02/2017 CR XR CHEST 2V from 08/18/[address] CHEST WO/W CON from 09/04/2019 FINDINGS: The cardiomediastinal silhouette and pulmonary vascularity are within normal limits. Consolidation is present in both lower lobes left more extensive than right consistent with bilateral pneumonia. No evidence of pneumothorax. No effusion. No acute bony abnormalities. IMPRESSION: Bilateral lower lobe pneumonia Dictated by: Hayes Mayer MD 07/03/2021 10:15 Hayes Mayer MD in [place] 07/03/2021 10:15
--- NOTE | 2021-07-03 09:44 | HMH.EDUTC ---
[facility] [place] Clinical Impression: Pneumonia Qualifiers: Pneumonia type: due to unspecified organism Laterality: bilateral Lung location: lower lobe of lung Qualified Code(s): J18.9 - Pneumonia, unspecified organism Disposition: Home, Self-Care Condition on Discharge: Good Instructions: Pneumonia-Adult Additional Instructions: ? Start antibiotic today. Be sure to complete entire prescription even if feeling better ? Monitor temp. Tylenol every 4 hours as needed and / or ibuprofen every 6 hours as needed ( As long as your primary care physician has told you that it ok to take both. For fever/aches/pains ER if no less than 101 despite Tylenol or Motrin ? Humidifier/vaporizer or hot steamy shower ? Inhaler every 4-6 hours as needed like we discussed. If unsure how to use it, ask pharmacist to demonstrate how. Should help open airways and improve cough, wheezing, and shortness of breath ? Mucinex for your cough and congestion. Be sure to drink lots of water. I *Start steroid today. Helps with inflammation therefore, cough and wheezing. Follow directions on the package. Reviewed side effects. Patient reports taking them before. Follow up IMMEDIATELY for new or worsening of symptoms OR no noticeable improvement over the next 48-72 hours. 911 immediately for any life threatening symptoms such as chest pain or difficulty breathing Prescriptions: guaiFENesin [Mucinex 600mg tablet] 1 - 2 tab PO Q12HP PRN #20 tab PRN Reason: Congestion Transmission Status: Received by [facility] # Doxycycline Monohydrate [Doxycycline Coffey 100mg Tab] 100 mg PO Q12 10 Days #20 tab Transmission Status: Received by [facility] # predniSONE [Prednisone 20mg Tab] 20 mg PO BID 5 Days #10 tab Transmission Status: Received by [facility] # Ondansetron [Zofran 4mg ODT] 4 mg PO TIDP PRN #10 tab PRN Reason: Vomiting Transmission Status: Received by [facility] # Referrals: Martine Calderón APRN [Primary Care Provider] - As needed Time of Disposition: 10:27 Medical Decision Making - Hermilo Inquiry Pt receiving controlled substance: No Hermilo was queried for this patient: No Vital Signs: 07/03/21 09:23 07/03/21 10:15 Temperature 98.4 F 98.4 F Temperature Source Oral Pulse Rate 124 H Pulse Rate [Left] 124 H Respiratory Rate 16 14 Blood Pressure 130/92 H 02 Sat by Pulse Oximetry 96 Orders (Tests/Meds): ED MEDICATIONS Discontinued Medications Generic Name Dose Route Start Last Admin Trade Name Lavell PRN Reason Stop Dose Admin Ceftriaxone Sodium 1 gm 07/03/21 10:06 07/03/21 10:12 Ceftriaxone 1gm Vial IM 07/03/21 10:07 1 gm ONCE ONE Administration Lidocaine HCl 0 ml 07/03/21 10:06 07/03/21 10:12 Lidocaine 1% 5ml Pf Vial IM 07/03/21 10:07 2.5 ml ONCE ONE Administration - Radiology Data #1 Image(s): Chest Image Reviewed: Yes I have reviewed radiologist's interpretation, Yes I reviewed the patient's radiology image w/the ED provider Bilateral lower lobe pneumonia Medical Decision Narrative: Discussed with patient about labs and transfer to the ED for further work up and evaluation and admission if needed Patient declined states she will try medication and return to the ED if her breathing gets worse Patient able to speak in complete sentences without getting winded and she advised again she would return if symptoms got worse [facility] [place] - General Stated complaint: covid symptoms Time Seen by Provider: 07/03/21 09:44 Mode of Arrival: Ambulatory Source of Information: Patient Limitations: No Limitations Description of Symptoms (Recalled from Triage Doc. by RN): pt was dx covid + about two weeks ago. pt c/o soa, n/v/d, and unable to tolerate eating. HEENT Symptoms (Recalled from RN notes): No Resp Symptoms (Recalled from RN notes): Yes (SOA) Skin Symptoms (Recalled from RN notes): No MS Symptoms (Recalled from RN notes): No F
[2021-07-03 10:15] VITALS: BP 130/92; PULSE 124; RESP 14; TEMP 36.9
== END 2021-07-03 10:34 | disposition home or self-care (01) ==
PROVIDERS: Emergency Provider Nurse Practitioner; PCP Nurse Practitioner
DX: U07.1 COVID-19 (principal); J18.9 Pneumonia, unspecified organism; I10 Essential (primary) hypertension; E78.5 Hyperlipidemia, unspecified; F41.9 Anxiety disorder, unspecified; J45.909 Unspecified asthma, uncomplicated; Z79.899 Other long term (current) drug therapy
CPT/HCPCS: G0463; 71045; 96372; 99202

== ENCOUNTER → 2021-07-04 17:04 | Outpatient (CLI) | payer MEDICARE, MEDICAID, SELFPAY | PROVIDERS: PCP Nurse Practitioner; Visit Provider Nurse Practitioner | DX: Z20.822 Contact with and (suspected) exposure to COVID-19 (principal); U07.1 COVID-19 | CPT/HCPCS: C9803; U0003; U0005 ==

== ENCOUNTER → 2021-07-24 16:02 | Outpatient (CLI) | payer MEDICARE, MEDICAID, SELFPAY ==
--- NOTE | 2021-07-24 16:14 | XR_ITS ---
PROCEDURE: XR CHEST 2V CLINICAL HISTORY: PNM COMPARISON: Chest 07/03/2021 FINDINGS: The lung vera are fairly well expanded. There has been essentially complete clearing of ill-defined pneumonic infiltrate left region left lobe seen on previous study. However there is persistent ill-defined pneumonic infiltrate right infrahilar region and right lower lobe primarily posterior basilar segment. The upper lung vera are clear bilaterally. No definite pleural fluid. Cardiac size is normal there is no pulmonary congestion. IMPRESSION: Resolved left basilar pneumonia, persistent ill-defined pneumonic infiltrate right lower lobe Dictated by: Dr. Darin Hart MD 07/25/2021 07:39 Dr. Darin Hart MD in [facility] 07/25/2021 07:39
[2021-07-24 16:33] LABS: Basophils # 0.1 K/mm3 (0-0.2); Basophils % 1.1 % (0.1-2.0); Eosinophils # 0.2 K/mm3 (0.0-0.4); Eosinophils % 1.9 % (0.1-12.0); Hematocrit 44.7 % (37.0-47.0); Hemoglobin 14.2 g/dL (12.2-16.2); Lymphocytes # 2.8 K/mm3 (0.7-4.5); Lymphocytes % 37.1 % (10-50); Mean Corpuscular HGB Conc 31.8 g/dL (31.8-35.4); Mean Corpuscular Hemoglobin 30.7 pg (27.0-31.2); Mean Corpuscular Volume 96.4 fl (81-99); Mean Platelet Volume 8.5 fl (7.4-10.4); Monocytes # 0.4 K/mm3 (0.1-1.0); Monocytes % 4.7 % (1.7-9.3); Neutrophils # 4.2 K/mm3 (1.8-7.8); Neutrophils % 55.1 % (37.0-80.0); Platelet Count 409 K/mm3 (142-424); Red Blood Count 4.64 M/mm3 (4.20-5.40); Red Cell Distribution Width 15.2 % (11.5-17.5); White Blood Count 7.7 K/mm3 (4.8-10.8)
[2021-07-24 16:43] LABS: D-Dimer 0.45 ug/mL (0.0-0.5)
== END ==
PROVIDERS: Visit Provider Internal Medicine Pulmonary Disease
DX: R06.00 Dyspnea, unspecified; J45.909 Unspecified asthma, uncomplicated; I26.99 Other pulmonary embolism without acute cor pulmonale
CPT/HCPCS: 36415; 71046; 85025; 85378; 86140

== ENCOUNTER → 2021-08-06 09:20 | Outpatient (CLI) | payer MEDICARE, MEDICAID, SELFPAY ==
--- NOTE | 2021-08-06 09:21 | NM_ITS ---
PROCEDURE: NM PUL VENT AND PERFUSE CLINICAL INDICATION: Dyspea Dyspnea, history of Covid19 COMPARISON: CR XR CHEST 2V from 08/06/2021 FINDINGS: Dose: 37.2 mCi technetium DTPA inhaled 8.30 mCi technetium MAA IV No mismatching perfusion/ventilation defects are evident. Sub segmental matching defect is present in the right lung base centrally. This is not larger than the radiographic abnormality. IMPRESSION: Low probability for pulmonary embolus. Dictated by: Hayes Mayer MD 08/06/2021 19:34 Hayes Mayer MD in [facility] 08/06/2021 19:34
--- NOTE | 2021-08-06 10:39 | XR_ITS ---
PROCEDURE: XR CHEST 2V CLINICAL HISTORY: SOB, HX OF COVID SEPT 2020 COMPARISON: CR XR CHEST 2V from 08/18/[address] CHEST WO/W CON from 09/04/2019 CR XR CHEST PORTABLE from 07/03/2021 CR XR CHEST 2V from 07/24/2021 FINDINGS: The cardiomediastinal silhouette and pulmonary vascularity are within normal limits. Patchy ground-glass attenuation once again noted in the right middle lobe and left lower lobe consistent with bilateral Covid19 pneumonia not significantly changed. No effusions. No evidence of pneumothorax. Mild right apical pleural thickening. No acute bony abnormalities. IMPRESSION: No change bilateral ground-glass infiltrates in keeping with Covid19 pneumonia Dictated by: Hayes Mayer MD 08/06/2021 18:03 Hayes Mayer MD in [facility] 08/06/2021 18:03
--- NOTE | 2021-08-06 10:52 | HMH.ITSHM ---
Current Home Medications as stated by this patient Rena Kaplan or renewals representative. []LISINOPRIL CITALOPRAM BUDESONIDE ALPRAZOLAM ONDANSETRON ALBUTEROL
== END ==
PROVIDERS: PCP Nurse Practitioner; Visit Provider Internal Medicine Pulmonary Disease
DX: R06.00 Dyspnea, unspecified (principal)
CPT/HCPCS: 71046; 78582; A9540; A9567

== ENCOUNTER 2021-10-12 13:31 | Emergency (ER) | payer MEDICARE, MEDICAID, SELFPAY ==
[2021-10-12 14:15] VITALS: BP 0/0; PULSE 0; RESP 0; TEMP -17.7; TEMP 0
== END 2021-10-12 14:20 | disposition left against medical advice (07) ==
LOC: UTC 13:32
PROVIDERS: Emergency Provider Nurse Practitioner Family; PCP Nurse Practitioner
DX: Z53.21 Procedure and treatment not carried out due to patient leaving prior to being seen by health care provider (principal)

== ENCOUNTER 2022-06-21 13:27 | Emergency (ER) | payer MEDICARE, MEDICAID, SELFPAY ==
[2022-06-21 14:10] VITALS: BP 138/96; PULSE 94; RESP 20; TEMP 37.3; O2SAT 99; BMI 33.3
--- NOTE | 2022-06-21 14:21 | EXP.UTC ---
Discharge Plan Disposition Patient Disposition: Home, Self-Care Condition: Good Prescriptions Prescriptions: New methylprednisolone [Medrol (Golden)] 4 mg tablets,dose pack 4 mg PO DIRECTED 6 Days Qty: 6 0RF Rx Instructions: 4 mg orally ;Medrol dose taper golden amoxicillin 875 mg tablet 875 mg PO BID 10 Days Qty: 20 0RF No Action citalopram 20 mg tablet 20 mg PO DAILY budesonide-formoterol [Symbicort] 160-4.5 mcg/actuation HFA aerosol inhaler 2 puff INHALATION BID 90 Days Qty: 10.2 3RF alprazolam [Xanax] 0.5 mg tablet 0.5 mg PO BID lisinopril 10 mg tablet 10 mg PO DAILY albuterol sulfate 200 PUFFS HFA aerosol inhaler 1 - 2 puffs IH Q4HP PRN (Reason: Shortness Of Breath) Qty: 1 0RF ondansetron 4 MG tablet,disintegrating 4 mg PO TIDP PRN (Reason: Vomiting) Qty: 10 0RF Referrals Follow up/Referrals: Martine Calderón APRN [Primary Care Provider] - See instructions Activity Restrictions/Add. Instructions Additional Instructions/Restrictions: If symptoms persist or worsen follow up with PCP. Clinical Impressions Clinical Impression: Upper respiratory infection Instructions Patient Instructions: DI for Acute Bronchitis Discharge ED Provider: Fatemeh Guzmán [facility] General Stated complaint: Cough, drainage, congestion, sinus pain Time Seen by Provider: 06/21/22 14:21 History of Present Illness Provider Complaint: Pt relates that she started feeling poorly a couple of days ago. She st Related Data Home Medications Medication Instructions Recorded Confirmed alprazolam 0.5 mg tablet (Xanax) 0.5 mg PO BID nerves 11/16/18 07/24/21 lisinopril 10 mg tablet 10 mg PO DAILY Hypertension 09/20/19 07/24/21 citalopram 20 mg tablet 20 mg PO DAILY . 03/12/21 07/24/21 Previous Rx's Medication Instructions Recorded albuterol sulfate 90 mcg/actuation 1 - 2 puffs IH Q4HP PRN Shortness 06/26/20 aerosol inhaler Of Breath #1 inh ondansetron 4 mg disintegrating 4 mg PO TIDP PRN Vomiting #10 tabs 07/03/21 tablet budesonide-formoterol HFA 160 2 puff inhalation BID 90 days 07/24/21 mcg-4.5 mcg/actuation aerosol #10.2 grams inhaler (Symbicort) amoxicillin 875 mg tablet 875 mg PO BID 10 days #20 tabs 06/21/22 methylprednisolone 4 mg tablets in 4 mg PO DIRECTED 6 days #6 tabs 06/21/22 a dose pack (Medrol (Golden)) Allergies Allergy/AdvReac Type Severity Reaction Status Date / Time pregabalin [From LYRICA] Allergy Mild Verified 07/24/21 15:11 [facility] Medical History (Updated 06/21/22 @ 14:36 by Fatemeh Guzmán APRN) Asthma Depression Hypertension Migraine Surgical History (Updated 06/21/22 @ 14:25 by Brandi Foley RN) History of appendectomy History of cholecystectomy History of hysterectomy Social History Smoking Status: Never smoker second hand exposure: Yes alcohol intake: never substance use type: denies use current occupational status: disabled Travel in the last 8 weeks: None household members: family housing: house current occupational exposures/hazards: No caffeine: Yes ROS Obtained: Yes All systems reviewed & no additional complaints except as documented Constitutional Constitutional: Reports system reviewed and no additional complaints, except as documented ENT Ears, Nose, Mouth, and Throat: Reports as per HPI, Reports nasal congestion, Reports nasal discharge and Reports sinus pressure Cardiovascular Cardiovascular: Reports system reviewed and no additional complaints, except as documented Respiratory Respiratory: Reports shortness of breath, Reports non-productive cough and Reports pain with cough Comments: Sats 97%. Pt states she gets very nervous as she had Covid last year with pneumonia that she felt almost killed her. Gastrointestinal Gastrointestingal: Reports system reviewed and no additional complaints, except as documented Musculoskeletal Musculoskeletal: Reports system reviewed a
[2022-06-21 14:37] VITALS: BP 138/96; PULSE 94; RESP 20; TEMP 37.3; O2SAT 99
== END 2022-06-21 14:39 | disposition home or self-care (01) ==
PROVIDERS: Emergency Provider Nurse Practitioner Family; PCP Nurse Practitioner
DX: J06.9 Acute upper respiratory infection, unspecified (principal)
CPT/HCPCS: 99212; C9803; G0463; U0003; U0005

== ENCOUNTER 2022-07-05 14:00 | Emergency (ER) | payer MEDICARE, MEDICAID, SELFPAY ==
[2022-07-05 14:28] VITALS: BP 141/89; PULSE 86; RESP 18; TEMP 36.7; O2SAT 98; BMI 33.1
--- NOTE | 2022-07-05 15:16 | EXP.UTC ---
Discharge Plan Disposition Patient Disposition: Home, Self-Care Condition: Good Prescriptions Prescriptions: New azithromycin [Zithromax Z-Golden] 250 mg tablet 250 mg PO DAILY 5 Days Qty: 5 0RF prednisone [prednisone] 20 mg tablet 20 mg PO BID Qty: 10 0RF Continued citalopram 20 mg tablet 20 mg PO DAILY budesonide-formoterol [Symbicort] 160-4.5 mcg/actuation HFA aerosol inhaler 2 puff INHALATION BID 90 Days Qty: 10.2 3RF alprazolam [Xanax] 0.5 mg tablet 0.5 mg PO BID lisinopril 10 mg tablet 10 mg PO DAILY albuterol sulfate 200 PUFFS HFA aerosol inhaler 1 - 2 puffs IH Q4HP PRN (Reason: Shortness Of Breath) Qty: 1 0RF Discontinued ondansetron 4 MG tablet,disintegrating 4 mg PO TIDP PRN (Reason: Vomiting) Qty: 10 0RF methylprednisolone [Medrol (Golden)] 4 mg tablets,dose pack 4 mg PO DIRECTED 6 Days Qty: 6 0RF Rx Instructions: 4 mg orally ;Medrol dose taper golden amoxicillin 875 mg tablet 875 mg PO BID 10 Days Qty: 20 0RF Referrals Follow up/Referrals: Martine Calderón APRN [Primary Care Provider] - See instructions Clinical Impressions Clinical Impression: Acute bronchitis Instructions Patient Instructions: DI for Acute Bronchitis Discharge ED Provider: Rosaura ([facility] [facility] General Stated complaint: Drainage, congestion Mode of Arrival: Ambulatory Source of Information: Patient Limitations: No Limitations Time Seen by Provider: 07/05/22 15:19 Description of Symptoms (Recalled from Triage Doc. by RN): pt comes in with c/o respiratory infection, sinus congestion, lungs hurt, productive cough. HEENT Symptoms (Recalled from RN notes): No Resp Symptoms (Recalled from RN notes): Yes Skin Symptoms (Recalled from RN notes): No MS Symptoms (Recalled from RN notes): No Functional Status (Recalled from RN notes): n/a History of Present Illness Provider Complaint: 47 yr old female presents c/o respiratory infection, green sinus congestion, lungs hurt, productive cough. Related Data Home Medications Medication Instructions Recorded Confirmed alprazolam 0.5 mg tablet (Xanax) 0.5 mg PO BID nerves 11/16/18 07/24/21 lisinopril 10 mg tablet 10 mg PO DAILY Hypertension 09/20/19 07/24/21 citalopram 20 mg tablet 20 mg PO DAILY . 03/12/21 07/24/21 Previous Rx's Medication Instructions Recorded albuterol sulfate 90 mcg/actuation 1 - 2 puffs IH Q4HP PRN Shortness 06/26/20 aerosol inhaler Of Breath #1 inh budesonide-formoterol HFA 160 2 puff inhalation BID 90 days 07/24/21 mcg-4.5 mcg/actuation aerosol #10.2 grams inhaler (Symbicort) azithromycin 250 mg tablet 250 mg PO DAILY 5 days #5 tabs 07/05/22 (Zithromax Z-Golden) prednisone 20 mg tablet 20 mg PO BID #10 tabs 07/05/22 Allergies Allergy/AdvReac Type Severity Reaction Status Date / Time pregabalin [From LYRICA] Allergy Mild Verified 07/05/22 14:31 Worker's Comp Is this a Worker's Comp case?: No PFSH PFSH Medical History , [employer]) Asthma Depression Hypertension Migraine Surgical History , [employer]) History of appendectomy History of cholecystectomy History of hysterectomy Social History , [employer]) Smoking Status: Never smoker second hand exposure: Yes alcohol intake: never substance use type: denies use current occupational status: disabled Travel in the last 8 weeks: None household members: family housing: house current occupational exposures/hazards: No caffeine: Yes ROS Obtained: Yes All systems reviewed & no additional complaints except as documented Constitutional Constitutional: Reports system reviewed and no additional complaints, except as documented and Denies headache(s) Eyes Eyes: Reports system reviewed and no additional complaints, except as documented ENT Ears, Nose, Mouth, and
[2022-07-05 15:36] VITALS: BP 141/89; PULSE 86; RESP 18; TEMP 36.7
== END 2022-07-05 15:36 | disposition home or self-care (01) ==
PROVIDERS: Emergency Provider Nurse Practitioner Family; PCP Nurse Practitioner
DX: J20.9 Acute bronchitis, unspecified (principal)
CPT/HCPCS: 99212; G0463

== ENCOUNTER 2022-10-22 08:29 | Emergency (ER) | payer MEDICARE, MEDICAID, SELFPAY ==
[2022-10-22 08:45] VITALS: BP 130/92; PULSE 63; RESP 19; TEMP 36.9; O2SAT 98; BMI 32.9
--- NOTE | 2022-10-22 09:00 | EXP.UTC ---
Discharge Plan Disposition Patient Disposition: Home, Self-Care Condition: Good Prescriptions Prescriptions: New azithromycin [Zithromax] 250 mg tablet 250 mg PO UD DOSE PK Qty: 6 0RF Rx Instructions: Take two (2) tablets today, then one (1) tablet days #2 thru #5 benzonatate [benzonatate] 100 mg capsule 100 mg PO TIDP PRN (Reason: Cough) Qty: 30 0RF methylprednisolone 4 mg Tablets,Dose Pack 4 mg PO DIRECTED Qty: 21 0RF No Action citalopram 20 mg tablet 20 mg PO DAILY budesonide-formoterol [Symbicort] 160-4.5 mcg/actuation HFA aerosol inhaler 2 puff INHALATION BID 90 Days Qty: 10.2 3RF alprazolam [Xanax] 0.5 mg tablet 0.5 mg PO BID lisinopril 10 mg tablet 10 mg PO DAILY albuterol sulfate 200 PUFFS HFA aerosol inhaler 1 - 2 puffs IH Q4HP PRN (Reason: Shortness Of Breath) Qty: 1 0RF azithromycin [Zithromax Z-Golden] 250 mg tablet 250 mg PO DAILY 5 Days Qty: 5 0RF prednisone [prednisone] 20 mg tablet 20 mg PO BID Qty: 10 0RF Referrals Follow up/Referrals: Lupe Calderón PA [Primary Care Provider] - See instructions Activity Restrictions/Add. Instructions Additional Instructions/Restrictions: Drink plenty of fluids. Take tylenol or ibuprofen for pain or fever. Take the medications as directed. Follow up with your regular doctor. GO TO THE ER FOR ANY WORSENING SYMPTOMS Clinical Impressions Clinical Impression: Acute bronchitis, Sinusitis Stand Alone Forms Stand Alone Forms: Work/School Release Instructions Patient Instructions: DI for Sinusitis, DI for Acute Bronchitis Discharge ED Provider: Warner Felix [facility] [place] H[place] General Stated complaint: KENNEDY, ear pain, lung pain, congestion Time Seen by Provider: 10/22/22 09:00 History of Present Illness Provider Complaint: She states that for the past she has had sore throat, chills, malaise and a productive cough. Related Data Home Medications Medication Instructions Recorded Confirmed alprazolam 0.5 mg tablet (Xanax) 0.5 mg PO BID nerves 11/16/18 07/24/21 lisinopril 10 mg tablet 10 mg PO DAILY Hypertension 09/20/19 07/24/21 citalopram 20 mg tablet 20 mg PO DAILY . 03/12/21 07/24/21 Previous Rx's Medication Instructions Recorded albuterol sulfate 90 mcg/actuation 1 - 2 puffs IH Q4HP PRN Shortness 06/26/20 aerosol inhaler Of Breath #1 inh budesonide-formoterol HFA 160 2 puff inhalation BID 90 days 07/24/21 mcg-4.5 mcg/actuation aerosol #10.2 grams inhaler (Symbicort) azithromycin 250 mg tablet 250 mg PO DAILY 5 days #5 tabs 07/05/22 (Zithromax Z-Golden) prednisone 20 mg tablet 20 mg PO BID #10 tabs 07/05/22 azithromycin 250 mg tablet 250 mg PO UD DOSE PK #6 tabs 10/22/22 (Zithromax) benzonatate 100 mg capsule 100 mg PO TIDP PRN Cough #30 caps 10/22/22 methylprednisolone 4 mg tablets in 4 mg PO DIRECTED #21 tabs 10/22/22 a dose pack Allergies Allergy/AdvReac Type Severity Reaction Status Date / Time pregabalin [From LYRICA] Allergy Mild Verified 07/05/22 14:31 [facility] Disclaimer: The information contained in this section may have been updated after the patient was seen, as this information can be updated by other users. Medical History Asthma Depression Hypertension Migraine Surgical History History of appendectomy History of cholecystectomy History of hysterectomy Social History Smoking Status: Never smoker second hand exposure: Yes alcohol intake: never substance use type: denies use current occupational status: disabled Travel in the last 8 weeks: None household members: family housing: house current occupational exposures/hazards: No caffeine: Yes ROS Obtained: Yes All systems reviewed & no additional complaints except as documented Constitutional Consti
[2022-10-22 09:45] LABS: UTC Influenza A Antigen Negative (Negative); UTC Influenza B Antigen Negative (Negative)
[2022-10-22 10:07] VITALS: BP 130/92; PULSE 63; RESP 19; TEMP 36.9; O2SAT 98
== END 2022-10-22 10:07 | disposition home or self-care (01) ==
PROVIDERS: Emergency Provider Nurse Practitioner Family; PCP Physician Assistant
DX: J20.9 Acute bronchitis, unspecified (principal); J32.9 Chronic sinusitis, unspecified
CPT/HCPCS: 87804; 99212; 99213; G0463

== ENCOUNTER 2022-12-25 14:05 | Emergency (ER) | payer MEDICARE, MEDICAID, SELFPAY ==
[2022-12-25 14:15] VITALS: BP 154/92; PULSE 80; RESP 20; TEMP 36.8; O2SAT 99; BMI 33.3
--- NOTE | 2022-12-25 14:15 | EXP.UTC ---
Discharge Plan Disposition Patient Disposition: Home, Self-Care Condition: Good Prescriptions Prescriptions: New promethazine-DM 6.25-15 mg/5 mL Syrup 5 ml PO Q6H PRN (Reason: Cough) Qty: 240 0RF methylprednisolone 4 mg Tablets,Dose Pack 4 mg PO DIRECTED Qty: 21 0RF amoxicillin-pot clavulanate 875-125 mg Tablet 1 tab PO Q12H Qty: 20 0RF No Action budesonide-formoterol [Symbicort] 160-4.5 mcg/actuation HFA aerosol inhaler 2 puff INHALATION BID 90 Days Qty: 10.2 3RF alprazolam [Xanax] 0.5 mg tablet 0.5 mg PO BID lisinopril 10 mg tablet 10 mg PO DAILY albuterol sulfate 200 PUFFS HFA aerosol inhaler 1 - 2 puffs IH Q4HP PRN (Reason: Shortness Of Breath) Qty: 1 0RF Referrals Follow up/Referrals: Martine Calderón APRN [Primary Care Provider] - See instructions Activity Restrictions/Add. Instructions Additional Instructions/Restrictions: Drink plenty of fluids. Take tylenol or ibuprofen for pain or fever. Take the medications as directed. Follow up with your regular doctor. GO TO THE ER FOR ANY WORSENING SYMPTOMS Don't start the oral steroids until tomorrow, since you had the shot here today. The cough medication (promethazine dm) will make you drowsy, so don't drive or operate heavy machinery after taking it. Clinical Impressions Clinical Impression: Acute bronchitis, Sinusitis Stand Alone Forms Stand Alone Forms: Work/School Release Instructions Patient Instructions: Sinusitis, DI for Sinusitis, DI for Acute Bronchitis Discharge ED Provider: Warner Felix [facility] General Stated complaint: Cough congestion SOA Time Seen by Provider: 12/25/22 14:14 Related Data Home Medications Medication Instructions Recorded Confirmed alprazolam 0.5 mg tablet (Xanax) 0.5 mg PO BID nerves 11/16/18 12/25/22 lisinopril 10 mg tablet 10 mg PO DAILY Hypertension 09/20/19 12/25/22 Previous Rx's Medication Instructions Recorded albuterol sulfate 90 mcg/actuation 1 - 2 puffs IH Q4HP PRN Shortness 06/26/20 aerosol inhaler Of Breath #1 inh budesonide-formoterol HFA 160 2 puff inhalation BID 90 days 07/24/21 mcg-4.5 mcg/actuation aerosol #10.2 grams inhaler (Symbicort) amoxicillin 875 mg-potassium 1 tab PO Q12H #20 tabs 12/25/22 clavulanate 125 mg tablet methylprednisolone 4 mg tablets in 4 mg PO DIRECTED #21 tabs 12/25/22 a dose pack promethazine-DM 6.25 mg-15 mg/5 mL 5 ml PO Q6H PRN Cough #240 mL 12/25/22 oral syrup Allergies Allergy/AdvReac Type Severity Reaction Status Date / Time pregabalin [From LYRICA] Allergy Mild Verified 12/25/22 14:43 [facility] Disclaimer: The information contained in this section may have been updated after the patient was seen, as this information can be updated by other users. Medical History Asthma Depression Hypertension Migraine Surgical History History of appendectomy History of cholecystectomy History of hysterectomy Social History Smoking Status: Never smoker second hand exposure: Yes alcohol intake: never substance use type: denies use current occupational status: disabled Travel in the last 8 weeks: None household members: family housing: house current occupational exposures/hazards: No caffeine: Yes ROS Obtained: Yes All systems reviewed & no additional complaints except as documented Constitutional Constitutional: Reports poor appetite Eyes Eyes: Reports system reviewed and no additional complaints, except as documented ENT Ears, Nose, Mouth, and Throat: Reports as per HPI Cardiovascular Cardiovascular: Reports system reviewed and no additional complaints, except as documented and Denies chest pain Respiratory Respiratory: Denies shortness of breath, Denies chest congestion, Reports cough, Denies
[2022-12-25 15:58] VITALS: BP 154/92; PULSE 80; RESP 20; TEMP 36.8; O2SAT 99
== END 2022-12-25 15:57 | disposition home or self-care (01) ==
PROVIDERS: Emergency Provider Nurse Practitioner Family; PCP Nurse Practitioner
DX: J20.9 Acute bronchitis, unspecified (principal); J01.90 Acute sinusitis, unspecified
CPT/HCPCS: 96372; 99212; 99214; G0463; J0696

== ENCOUNTER 2023-02-02 15:57 | Emergency (ER) | payer MEDICARE, MEDICAID, SELFPAY ==
[2023-02-02 16:15] VITALS: BP 162/91; PULSE 105; RESP 20; TEMP 37.1; O2SAT 98; BMI 33.3
--- NOTE | 2023-02-02 16:40 | EXP.UTC ---
Discharge Plan Disposition Patient Disposition: Home, Self-Care Condition: Good Prescriptions Prescriptions: New azithromycin [Zithromax] 250 mg tablet 250 mg PO UD DOSE PK Qty: 6 0RF Rx Instructions: Take two (2) tablets today, then one (1) tablet days #2 thru #5 benzonatate [benzonatate] 100 mg capsule 100 mg PO TIDP PRN (Reason: Cough) Qty: 30 0RF methylprednisolone 4 mg Tablets,Dose Pack 4 mg PO DIRECTED Qty: 21 0RF No Action alprazolam [Xanax] 0.5 mg tablet 0.5 mg PO BID lisinopril 10 mg tablet 10 mg PO DAILY albuterol sulfate 200 PUFFS HFA aerosol inhaler 1 - 2 puffs IH Q4HP PRN (Reason: Shortness Of Breath) Qty: 1 0RF rizatriptan 10 mg tablet,disintegrating 10 mg PO NEEDED PRN (Reason: migraines) Skyrizi 150 mg/mL pen injector 150 mg SQ . budesonide-formoterol [Symbicort] 160-4.5 mcg/actuation HFA aerosol inhaler 2 puff INHALATION BID Referrals Follow up/Referrals: Martine Calderón APRN [Primary Care Provider] - See instructions Activity Restrictions/Add. Instructions Additional Instructions/Restrictions: Drink plenty of fluids. Take tylenol or ibuprofen for pain or fever. Take the medications as directed. Follow up with your regular doctor. GO TO THE ER FOR ANY WORSENING SYMPTOMS Clinical Impressions Clinical Impression: Asthma exacerbation Instructions Patient Instructions: DI for Asthma -- Adult Discharge ED Provider: Warner Felix [facility] [place] General Stated complaint: Cough,SOB,KENNEDY, Congestion Mode of Arrival: Ambulatory Source of Information: Patient Limitations: No Limitations Time Seen by Provider: 02/02/23 16:40 Description of Symptoms (Recalled from Triage Doc. by RN): lung congestion, cough, KENNEDY, runny nose, and sore throat HEENT Symptoms (Recalled from RN notes): Yes Resp Symptoms (Recalled from RN notes): No Skin Symptoms (Recalled from RN notes): No MS Symptoms (Recalled from RN notes): No Functional Status (Recalled from RN notes): n/a History of Present Illness Provider Complaint: She states that she has had chest congestion, cough, KENNEDY, runny nose, and sore throat for the past 2 days. Related Data Home Medications Medication Instructions Recorded Confirmed alprazolam 0.5 mg tablet (Xanax) 0.5 mg PO BID nerves 11/16/18 02/02/23 lisinopril 10 mg tablet 10 mg PO DAILY Hypertension 09/20/19 02/02/23 budesonide-formoterol HFA 160 2 puff inhalation BID . 02/02/23 02/02/23 mcg-4.5 mcg/actuation aerosol inhaler (Symbicort) risankizumab-rzaa 150 mg/mL 150 mg SQ . . 02/02/23 02/02/23 subcutaneous pen injector (Skyrizi) rizatriptan 10 mg disintegrating 10 mg PO NEEDED PRN migraines 02/02/23 02/02/23 tablet Previous Rx's Medication Instructions Recorded albuterol sulfate 90 mcg/actuation 1 - 2 puffs IH Q4HP PRN Shortness 06/26/20 aerosol inhaler Of Breath #1 inh azithromycin 250 mg tablet 250 mg PO UD DOSE PK #6 tabs 02/02/23 (Zithromax) benzonatate 100 mg capsule 100 mg PO TIDP PRN Cough #30 caps 02/02/23 methylprednisolone 4 mg tablets in 4 mg PO DIRECTED #21 tabs 02/02/23 a dose pack Allergies Allergy/AdvReac Type Severity Reaction Status Date / Time pregabalin [From LYRICA] Allergy Mild Verified 02/02/23 16:31 Worker's Comp Is this a Worker's Comp case?: No [facility] Disclaimer: The information contained in this section may have been updated after the patient was seen, as this information can be updated by other users. Medical History Asthma Depression Hypertension Migraine Surgical History History of appendectomy History of cholecystectomy History of hysterectomy Social History Smoking Status: Never smoker second hand exposure: Yes alcohol intake: never substance use type: denies use current
--- NOTE | 2023-02-02 16:43 | XR_ITS ---
PROCEDURE INFORMATION: Exam: XR Chest Exam date and time: 02/02/2023 4:41 PM Age: 47 years old Clinical indication: Other: Chest congestion, asthma, 2nd hand smoke exposure TECHNIQUE: Imaging protocol: Radiologic exam of the chest. Views: 2 views. COMPARISON: CR XR CHEST 2V 08/06/2021 10:43 AM FINDINGS: Lungs: Mild elevation the right hemidiaphragm is stable. A few minimal linear densities in the lung bases suggest atelectasis or parenchymal scarring. The lungs appear otherwise clear. No focal areas of consolidation. Pleural spaces: No pleural effusions. Negative for pneumothorax. Heart/Mediastinum: Cardiac silhouette and pulmonary vasculature are within range of normal. Bones/joints: There is no evidence of acute fracture. There is a mild convex right thoracolumbar scoliosis. IMPRESSION: 1. Mild stable elevation of the right hemidiaphragm. 2. A few minimal linear densities in the lung bases suggest atelectasis or parenchymal scarring.
--- NOTE | 2023-02-02 16:50 | PC.NURSE ---
Pt to RAD
[2023-02-02 17:58] VITALS: BP 162/91; PULSE 105; RESP 20; TEMP 37.1; O2SAT 98
== END 2023-02-02 17:58 | disposition home or self-care (01) ==
PROVIDERS: Emergency Provider Nurse Practitioner Family; PCP Nurse Practitioner
DX: J45.901 Unspecified asthma with (acute) exacerbation (principal); R51.9 Headache, unspecified; R06.02 Shortness of breath; I10 Essential (primary) hypertension
CPT/HCPCS: 71046; 96372; 99212; 99214; C9803; G0463; J0696; U0003; U0005

== ENCOUNTER 2023-03-27 10:44 | Emergency (ER) | payer MEDICARE, MEDICAID, SELFPAY ==
[2023-03-27 11:00] VITALS: BP 140/96; PULSE 89; RESP 22; TEMP 36.7; O2SAT 98; BMI 33.3
--- NOTE | 2023-03-27 11:40 | EXP.UTC ---
Discharge Plan Disposition Patient Disposition: Home, Self-Care Condition: Good Prescriptions Prescriptions: New prednisone 10 mg tablet 10 mg PO BID 5 Days Qty: 10 0RF No Action alprazolam [Xanax] 0.5 mg tablet 0.5 mg PO BID lisinopril 10 mg tablet 10 mg PO DAILY albuterol sulfate 200 PUFFS HFA aerosol inhaler 1 - 2 puffs IH Q4HP PRN (Reason: Shortness Of Breath) Qty: 1 0RF rizatriptan 10 mg tablet,disintegrating 10 mg PO NEEDED PRN (Reason: migraines) Skyrizi 150 mg/mL pen injector 150 mg SQ . budesonide-formoterol [Symbicort] 160-4.5 mcg/actuation HFA aerosol inhaler 2 puff INHALATION BID azithromycin [Zithromax] 250 mg tablet 250 mg PO UD DOSE PK Qty: 6 0RF Rx Instructions: Take two (2) tablets today, then one (1) tablet days #2 thru #5 benzonatate [benzonatate] 100 mg capsule 100 mg PO TIDP PRN (Reason: Cough) Qty: 30 0RF methylprednisolone 4 mg Tablets,Dose Pack 4 mg PO DIRECTED Qty: 21 0RF Referrals Follow up/Referrals: Martine Calderón APRN [Primary Care Provider] - See instructions Activity Restrictions/Add. Instructions Additional Instructions/Restrictions: Tylenol and ibuprofen as needed for pain or fever Humidifier/vaporizer/hot steamy shower Follow-up with primary care tomorrow. Follow-up immediately in the ER of the [facility] for new or worsening symptoms or no noticeable improvement over the next 48-72 hours. Inhaler every 4-6 hours as needed. Should help open airways improved cough, wheezing, shortness of breath Start steroids today. Helps with inflammation therefore coughing and wheezing. Follow directions on package. Clinical Impressions Clinical Impression: Acute bronchitis Instructions Patient Instructions: Acute Bronchitis [facility]charge [facility]Mirna [facility] [place] HPI General Stated complaint: Drainage, congestion, headache, sore throat Mode of Arrival: Ambulatory Source of Information: Patient Limitations: No Limitations Time Seen by Provider: 03/27/23 11:40 Description of Symptoms (Recalled from Triage Doc. by RN): PATIENT C/O CONGESTION, SINUS PRESSURE, BILATERAL EAR PAIN, LUNG PAIN, SORE THROAT, SOA, COUGH AND HEADACHE X 2 DAYS HEENT Symptoms (Recalled from RN notes): Yes Resp Symptoms (Recalled from RN notes): Yes Skin Symptoms (Recalled from RN notes): No MS Symptoms (Recalled from RN notes): No Functional Status (Recalled from RN notes): WNL History of Present Illness Provider Complaint: 47 yr old FEMALE PRESENTS C/O CONGESTION, SINUS PRESSURE, BILATERAL EAR PAIN, LUNG PAIN, SORE THROAT, SOA, COUGH AND HEADACHE X 2 DAYS Related Data Home Medications Medication Instructions Recorded Confirmed alprazolam 0.5 mg tablet (Xanax) 0.5 mg PO BID nerves 11/16/18 02/02/23 lisinopril 10 mg tablet 10 mg PO DAILY Hypertension 09/20/19 02/02/23 budesonide-formoterol HFA 160 2 puff inhalation BID . 02/02/23 02/02/23 mcg-4.5 mcg/actuation aerosol inhaler (Symbicort) risankizumab-rzaa 150 mg/mL 150 mg SQ . . 02/02/23 02/02/23 subcutaneous pen injector (Skyrizi) rizatriptan 10 mg disintegrating 10 mg PO NEEDED PRN migraines 02/02/23 02/02/23 tablet Previous Rx's Medication Instructions Recorded albuterol sulfate 90 mcg/actuation 1 - 2 puffs IH Q4HP PRN Shortness 06/26/20 aerosol inhaler Of Breath #1 inh azithromycin 250 mg tablet 250 mg PO UD DOSE PK #6 tabs 02/02/23 (Zithromax) benzonatate 100 mg capsule 100 mg PO TIDP PRN Cough #30 caps 02/02/23 methylprednisolone 4 mg tablets in 4 mg PO DIRECTED #21 tabs 02/02/23 a dose pack prednisone 10 mg tablet 10 mg PO BID 5 days #10 tabs 03/27/23 Allergies Allergy/AdvReac Type Severity Reaction Status Date / Time pregabalin [From LYRICA] Allergy Mild Verified 02/02/23 16:31 Worker's Comp Is this a Worker's Comp case?: No [facility] Disclaimer: The information contained in this section may have been updated after the john
[2023-03-27 11:46] VITALS: BP 140/96; PULSE 89; RESP 22; TEMP 36.7; O2SAT 98
== END 2023-03-27 11:50 | disposition home or self-care (01) ==
PROVIDERS: Emergency Provider Nurse Practitioner Family; PCP Nurse Practitioner
DX: J20.9 Acute bronchitis, unspecified (principal); H92.03 Otalgia, bilateral; R06.02 Shortness of breath; I10 Essential (primary) hypertension; J45.909 Unspecified asthma, uncomplicated; F32.A Depression, unspecified
CPT/HCPCS: 99212; 99214; G0463

== ENCOUNTER 2023-04-26 16:22 | Emergency (ER) | payer MEDICARE, MEDICAID, SELFPAY ==
[2023-04-26 16:23] VITALS: BP 147/96; PULSE 69; RESP 18; TEMP 36.8; O2SAT 97; BMI 33.3
--- NOTE | 2023-04-26 16:40 | EXP.UTC ---
Discharge Plan Disposition Patient Disposition: Home, Self-Care Condition: Good Prescriptions Prescriptions: New amoxicillin [amoxicillin] 875 mg tablet 875 mg PO Q12H Qty: 20 0RF benzonatate [benzonatate] 100 mg capsule 100 mg PO TIDP PRN (Reason: Cough) Qty: 30 0RF methylprednisolone 4 mg Tablets,Dose Pack 4 mg PO DIRECTED Qty: 21 0RF No Action alprazolam [Xanax] 0.5 mg tablet 0.5 mg PO BID lisinopril 10 mg tablet 10 mg PO DAILY albuterol sulfate 200 PUFFS HFA aerosol inhaler 1 - 2 puffs IH Q4HP PRN (Reason: Shortness Of Breath) Qty: 1 0RF rizatriptan 10 mg tablet,disintegrating 10 mg PO NEEDED PRN (Reason: migraines) Skyrizi 150 mg/mL pen injector 150 mg SQ . budesonide-formoterol [Symbicort] 160-4.5 mcg/actuation HFA aerosol inhaler 2 puff INHALATION BID azithromycin [Zithromax] 250 mg tablet 250 mg PO UD DOSE PK Qty: 6 0RF Rx Instructions: Take two (2) tablets today, then one (1) tablet days #2 thru #5 benzonatate [benzonatate] 100 mg capsule 100 mg PO TIDP PRN (Reason: Cough) Qty: 30 0RF methylprednisolone 4 mg Tablets,Dose Pack 4 mg PO DIRECTED Qty: 21 0RF prednisone 10 mg tablet 10 mg PO BID 5 Days Qty: 10 0RF Referrals Follow up/Referrals: Martine Calderón, [employer] [Primary Care Provider] - See instructions Activity Restrictions/Add. Instructions Additional Instructions/Restrictions: Drink plenty of fluids. Take tylenol or ibuprofen for pain or fever. Take the medications as directed. Follow up with your regular doctor. GO TO THE ER FOR ANY WORSENING SYMPTOMS Clinical Impressions Clinical Impression: Acute bronchitis, Otitis media Instructions Patient Instructions: Acute Bronchitis, DI for Acute Bronchitis Discharge ED Provider: Warner Felix [facility] HPI General Stated complaint: ear ache, sinus congestion, sore throat Time Seen by Provider: 04/26/23 16:40 History of Present Illness Provider Complaint: She states that for the past 4 days she has had ear pain, chest congestion, sinus congestion and pleuritic type chest pain. Related Data Home Medications Medication Instructions Recorded Confirmed alprazolam 0.5 mg tablet (Xanax) 0.5 mg PO BID nerves 11/16/18 02/02/23 lisinopril 10 mg tablet 10 mg PO DAILY Hypertension 09/20/19 02/02/23 budesonide-formoterol HFA 160 2 puff inhalation BID . 02/02/23 02/02/23 mcg-4.5 mcg/actuation aerosol inhaler (Symbicort) risankizumab-rzaa 150 mg/mL 150 mg SQ . . 02/02/23 02/02/23 subcutaneous pen injector (Skyrizi) rizatriptan 10 mg disintegrating 10 mg PO NEEDED PRN migraines 02/02/23 02/02/23 tablet Previous Rx's Medication Instructions Recorded albuterol sulfate 90 mcg/actuation 1 - 2 puffs IH Q4HP PRN Shortness 06/26/20 aerosol inhaler Of Breath #1 inh azithromycin 250 mg tablet 250 mg PO UD DOSE PK #6 tabs 02/02/23 (Zithromax) benzonatate 100 mg capsule 100 mg PO TIDP PRN Cough #30 caps 02/02/23 methylprednisolone 4 mg tablets in 4 mg PO DIRECTED #21 tabs 02/02/23 a dose pack prednisone 10 mg tablet 10 mg PO BID 5 days #10 tabs 03/27/23 amoxicillin 875 mg tablet 875 mg PO Q12H #20 tabs 04/26/23 benzonatate 100 mg capsule 100 mg PO TIDP PRN Cough #30 caps 04/26/23 methylprednisolone 4 mg tablets in 4 mg PO DIRECTED #21 tabs 04/26/23 a dose pack Allergies Allergy/AdvReac Type Severity Reaction Status Date / Time pregabalin [From LYRICA] Allergy Mild Verified 02/02/23 16:31 [facility] Disclaimer: The information contained in this section may have been updated after the patient was seen, as this information can be updated by other users. Medical History , [employer]) Asthma Depression Hypertension Migraine Surgical History , [employer]) History of appendectomy History of cholecystectomy History of hysterecto
[2023-04-26 16:54] LABS: UTC Strep Screen (Rapid) Negative (Negative)
[2023-04-26 17:06] VITALS: BP 147/96; PULSE 69; RESP 18; TEMP 36.8; O2SAT 97
== END 2023-04-26 17:07 | disposition home or self-care (01) ==
PROVIDERS: Emergency Provider Nurse Practitioner Family; PCP Nurse Practitioner
DX: J20.9 Acute bronchitis, unspecified (principal); H66.93 Otitis media, unspecified, bilateral; R07.89 Other chest pain; J45.909 Unspecified asthma, uncomplicated; I10 Essential (primary) hypertension; F32.A Depression, unspecified
CPT/HCPCS: 87880; 99212; 99214; G0463

== ENCOUNTER 2023-07-29 11:56 | Outpatient (CLI) | payer MEDICARE, MEDICAID, SELFPAY ==
[2023-07-29] VITALS (7 sets, daily range): BP systolic 123–146; BP diastolic 73–94; PULSE 51–73; RESP 16–18; TEMP 36.2; O2SAT 96–100; BMI 33.9
--- NOTE | 2023-07-29 11:57 | CT_ITS ---
APPROVED REPORT Firesetter: CLINICAL INDICATION Chest Pain TECHNIQUE Image Acquisition: A 128 slice MDCT scanner (Xunleia View) was used for data acquisition. A noncontrast coronary calcium scan was performed. A CT attenuation threshold of 130 Hounsfield units (HU) was used for the detection of calcium in contiguous voxels of 1 sq mm in area to be counted as individual lesions. Bolus tracking in the ascending aorta with a threshold of 180 HU was performed. Immediately afterwards, ECG synchronized cardiac CT was then performed from the cardiac base to apex using retrospective gating with ECG tube current modulation. A total of 85 mL of Isovue 370 mg/mL contrast medium was administered at 5 mL/sec followed by a saline flush using a biphasic injection protocol. A tube voltage of 120 KVp was used. The patient received the following medications prior to the cardiac CT. 100 mg of oral metoprolol 5 mg of intravenous metoprolol. 0.8 mg of sublingual nitroglycerin. The average heart rate at the time of acquisition was 51 bpm and regular. Image Reconstruction Transaxial images were reconstructed at 0.67 mm slide thickness. Data was reviewed interactively on an advanced workstation capable of 2 and 3-dimensional displays in all conventional reconstruction formats, including multiplanar reformations, maximum intensity projections, curved multiplanar reformations, and volume rendered reconstructions. When applicable, selected routine images describing the relevant coronary anatomy and pathology were saved and sent to PACS. Complications None Technical Quality Overall image quality was good. Coronary artery opacification was adequate. Total DLP (Dose-Length Product) is 1299.1 mGy-cm. The reported value represents the total of one or more individual components during the CT acquisition of this date and at this time, and as such, the same value may appear in more than one CT report depending on the interpreting/reporting physicians. COMPARISON None FINDINGS CT Coronary Calcium Scoring LMA (Left Main Artery) = 0 LAD (Left Anterior Descending) = 0 LCX (Left Coronary Circumflex) = 0 RCA (Right Coronary Artery) = 0 Total Calcium Score = 0 using the AJ-130 method. The interpretation of the calcium heart score is based on the following continuum*: 0 = no calcified plaque detected (risk of coronary artery disease is very low ??? less than 5%) 1-10 = calcium detected in extremely minimal levels (risk of coronary diseases is still low ??? less than 10%) 11-100 = mild levels of plaque detected with certainty (mild or minimal narrowing of heart arteries is likely) 101-400 = definite,at least moderate levels of plaque detected (relatively high risk of a heart attack within 3-5 years) >401-999 = extensive levels of plaque detected (high risk of heart attack, high levels of vascular disease are present, high likelihood of at least one significant coronary narrowing) *The calcium heart score quantifies the burden of coronary calcification/plaque in the coronary arteries. The calcium heart score is not able to evaluate the presence or burden of non-calcified (i.e. soft) plaque. There is minimal calcification in the ascending aorta, but no identifiable calcification in the aortic valve, mitral annulus or mitral valve, pericardium, or myocardium. Coronary CT Angiography Coronaries have normal origin and proximal course. The coronary arterial system is right dominant. Note: Stenosis is reported as maximum percentage diameter stenosis. Stenosis grading is reported using the following scheme: Quantitative Stenosis Grading: Left Main (LM): The left main originates normally from the left sinus of Valsalva. The LM bifurcates into the left anteri
[2023-07-29 13:02] LABS: Anion Gap 10.4 mEq/L (5-15); Blood Urea Nitrogen 5 mg/dl (7-17); Calcium 8.6 mg/dl (8.4-10.2); Carbon Dioxide 32 mmol/L (22.0-30.0); Chloride 101 mmol/L (98-107); Creatinine Clearance Estimated 140 mL/min (50-200); Estimated Glomerular Filt Rate 89 ml/min (>60); GFR (African American) 107 ML/MIN (>60); Glucose 84 mg/dl (74-100); Potassium 3.4 mmoL/L (3.5-5.1); Sodium 140 mmol/L (136-145)
== END 2023-07-29 14:35 | disposition home or self-care (01) ==
PROVIDERS: PCP Nurse Practitioner; Visit Provider Nurse Practitioner Family
DX: I10 Essential (primary) hypertension (principal); I34.0 Nonrheumatic mitral (valve) insufficiency; R06.09 Other forms of dyspnea; R07.89 Other chest pain; R94.31 Abnormal electrocardiogram [ECG] [EKG]
CPT/HCPCS: 75574; 80048; Q9967

== ENCOUNTER → 2023-08-02 09:56 | Outpatient (CLI) | payer MEDICARE, MEDICAID, SELFPAY ==
--- NOTE | 2023-08-02 09:56 | CA_ITS ---
APPROVED REPORT EXAM: Comprehensive 2D, Doppler, and color-flow Echocardiogram Vault Person: Taylor Gomez RDCS Ht: 5 ft 5 in Wt: 205lbs BSA: 2.00 BP: 134/83 mmHg Indications: CP,HTN,SOA M-Mode Dimensions RVDd 2.14 cm (0.9-2.6) LA Diam 2.94 cm (1.9-4.0) LVDd 4.21 cm (3.5-5.7) Ao Diam 3.26 cm (2.0-3.7) LVDs 2.82 cm (3.5-5.7) IVSd 0.86 cm (0.6-1.1) PWd 0.75 cm (0.6-1.1) EF (Teich) 61.90% FS 33.00% EDV (Teich) 79.00 mL TAPSE 1.51 (<1.7) ESV (Teich) 30.10 mL LV Diastology E Decel Time 207.00 (160-240 msec) E/A Ratio 0.7 MED E' 5.00 (< 7 cm/sec) E'/MED E' Ratio 11.04 (>14) LAT E' 4.90 (<10 cm/sec) E/LAT E' Ratio 11.27 (>14) Mitral Valve MV E Max Kan. 55.00 (40-130 cm/s) MV A Velocity 82.00 (40-130 cm/s) E/A Ratio 0.67 MV Decel. Time 207.00 (160-240 ms) MV PHT 61.00 ms Left Ventricle The left ventricle is normal size. The left ventricular systolic function is normal. The left ventricular ejection fraction is within the normal range. There is normal left ventricular wall thickness. There is normal LV segmental wall motion. The left ventricular diastolic function is normal. LVEF is 55%. Right Ventricle The right ventricle is normal size. The right ventricular systolic function is normal. Atria The left atrium size is normal. The right atrium size is normal. There is no Doppler evidence of interatrial shunt. Aortic Valve The aortic valve opens well. There is no aortic valvular stenosis. No aortic regurgitation is present. Mitral Valve The mitral valve is normal in structure. No evidence of mitral valve stenosis. Mild mitral regurgitation. Tricuspid Valve The tricuspid valve leaflets are thin and pliable. Trace tricuspid regurgitation. RVSP is normal. Pulmonic Valve The pulmonary valve is normal in structure. Trace pulmonic regurgitation. Great Vessels The aortic root is normal in size. The ascending aorta is not well visualized. IVC is normal in size and collapses >50% with inspiration. Pericardium There is no pericardial effusion. Other Information Study Quality: Adequate Conclusion Normal biventricular systolic function. Mild MR. Electronically signed by : Caroline Lackey MD 08/03/2023 18:41:06
[2023-08-02 11:10] LABS: Basophils # 0.1 K/mm3 (0-0.2); Basophils % 1.2 % (0.1-2.0); Eosinophils # 0.1 K/mm3 (0.0-0.4); Eosinophils % 1.4 % (0.1-12.0); Hematocrit 44.2 % (37.0-47.0); Hemoglobin 15.1 g/dL (12.2-16.2); Lymphocytes # 2.2 K/mm3 (0.7-4.5); Lymphocytes % 25.2 % (10-50); Mean Corpuscular HGB Conc 34.2 g/dL (31.8-35.4); Mean Corpuscular Hemoglobin 30.7 pg (27.0-31.2); Mean Corpuscular Volume 89.7 fl (81-99); Mean Platelet Volume 7.2 fl (7.4-10.4); Monocytes # 0.4 K/mm3 (0.1-1.0); Monocytes % 4.3 % (1.7-9.3); Neutrophils % 67.9 % (37.0-80.0); Platelet Count 356 K/mm3 (142-424); Red Blood Count 4.93 M/mm3 (4.20-5.40); Red Cell Distribution Width 13.5 % (11.5-17.5); White Blood Count 8.8 K/mm3 (4.8-10.8)
[2023-08-02 12:36] LABS: Alanine Aminotransferase 25 U/L (12-78); Albumin Level 3.9 g/dl (3.5-5.0); Alkaline Phosphatase 60 U/L (38-126); Aspartate Amino Transferase 37 U/L (14-36); Bilirubin,Direct 0.2 mg/dl (0.0-0.4); Bilirubin,Indirect 0.6 mg/dL (0.0-0.9); Bilirubin,Total 0.8 mg/dl (0.2-1.3); Bilirubin,Unconjugated 0.6 mg/dL (0.0-1.1); Blood Urea Nitrogen 6 mg/dl (7-17); Calcium 9.4 mg/dl (8.4-10.2); Carbon Dioxide 30 mmol/L (22.0-30.0); Chloride 105 mmol/L (98-107); Cholesterol 264 mg/dl (140-200); Estimated Glomerular Filt Rate 89 ml/min (>60); GFR (African American) 107 ML/MIN (>60); Glucose 92 mg/dl (74-100); HDL Cholesterol 66 mg/dl (40-60); Sodium 140 mmol/L (136-145); Total Protein,Serum 7.2 g/dl (6.3-8.2); Triglycerides 151 mg/dl (30-150); VLDL Cholesterol 30 mg/dL (0-40)
[2023-08-02 12:47] LABS: Direct LDL Cholesterol 158.76 mg/dL (100-129)
[2023-08-02 12:49] LABS: Free T4 (Free Thyroxine) 0.84 ng/dl (0.78-2.19)
[2023-08-02 13:04] LABS: Thyroid Stimulating Hormone 4.67 uIU/mL (0.465-4.68)
== END ==
PROVIDERS: PCP Nurse Practitioner; Visit Provider Nurse Practitioner Family
DX: I11.9 Hypertensive heart disease without heart failure (principal); R07.9 Chest pain, unspecified; R06.00 Dyspnea, unspecified; I34.0 Nonrheumatic mitral (valve) insufficiency; R94.31 Abnormal electrocardiogram [ECG] [EKG]
CPT/HCPCS: 36415; 80048; 80061; 80076; 84439; 84443; 85025; 93306

== ENCOUNTER 2024-07-08 15:49 | Emergency (ER) | payer MEDICARE, SELFPAY ==
[2024-07-08 16:11] VITALS: BP 142/99; PULSE 77; RESP 16; TEMP 36.8; O2SAT 95; BMI 33.9
--- NOTE | 2024-07-08 16:44 | EXP.UTC ---
Discharge Plan Disposition Patient Disposition: Home, Self-Care Condition: Good Prescriptions Prescriptions: New azithromycin [Zithromax] 250 mg tablet 250 mg PO UD DOSE PK Qty: 6 0RF Rx Instructions: Take two (2) tablets today, then one (1) tablet days #2 thru #5 benzonatate 100 mg capsule 100 mg PO TIDP PRN (Reason: Cough) Qty: 30 0RF methylprednisolone 4 mg Tablets,Dose Pack 4 mg PO DIRECTED 6 Days Qty: 21 0RF Rx Instructions: Take 1 pack as directed for 6 days No Action ibuprofen 800 mg tablet 800 mg PO Q6H PRN citalopram 10 mg tablet 10 mg PO DAILY vitamin D3-vitamin K2 125 mcg (5,000 unit)-100 mcg capsule PO alprazolam [Xanax] 0.5 mg tablet 0.5 mg PO BID lisinopril 10 mg tablet 10 mg PO DAILY albuterol sulfate 200 PUFFS HFA aerosol inhaler 1 - 2 puffs inhalation Q4HP PRN (Reason: Shortness Of Breath) Qty: 1 0RF rizatriptan 10 mg tablet,disintegrating 10 mg PO NEEDED PRN (Reason: migraines) Skyrizi 150 mg/mL pen injector 150 mg SQ . budesonide-formoterol [Symbicort] 160-4.5 mcg/actuation HFA aerosol inhaler 2 puff INHALATION BID Referrals Follow up/Referrals: Sophia Wade APRN [Primary Care Provider] - See instructions Activity Restrictions/Add. Instructions Additional Instructions/Restrictions: Drink plenty of fluids. Take tylenol or ibuprofen for pain or fever. Take the medications as directed. Follow up with your regular doctor. GO TO THE ER FOR ANY WORSENING SYMPTOMS Clinical Impressions Clinical Impression: Sinusitis, Bronchitis Instructions Patient Instructions: Sinusitis, DI for Sinusitis Print Language Print Language: [place] Discharge ED Provider: Warner Felix [facility] [place] General Stated complaint: sore throat, naseem, ear ache Mode of Arrival: Ambulatory Source of Information: Patient Limitations: No Limitations Time Seen by Provider: 07/08/24 16:27 Description of Symptoms (Recalled from Triage Doc. by RN): Reports sinus congestion, cough, earache and sore throat. HEENT Symptoms (Recalled from RN notes): Yes Resp Symptoms (Recalled from RN notes): No Skin Symptoms (Recalled from RN notes): No MS Symptoms (Recalled from RN notes): No Functional Status (Recalled from RN notes): wnl Related Data Home Medications ?Medication ?Instructions ?Recorded ?Confirmed alprazolam 0.5 mg tablet (Xanax) 0.5 mg PO BID nerves 11/16/18 05/16/24 lisinopril 10 mg tablet 10 mg PO DAILY Hypertension 09/20/19 05/16/24 budesonide-formoterol HFA 160 2 puff inhalation BID . 02/02/23 05/16/24 mcg-4.5 mcg/actuation aerosol inhaler (Symbicort) risankizumab-rzaa 150 mg/mL 150 mg SQ . . 02/02/23 05/16/24 subcutaneous pen injector (Skyrizi) rizatriptan 10 mg disintegrating 10 mg PO NEEDED PRN migraines 02/02/23 05/16/24 tablet citalopram 10 mg tablet 10 mg PO DAILY 02/02/24 05/16/24 ibuprofen 800 mg tablet 800 mg PO Q6H PRN 02/02/24 05/16/24 vitamin D3 125 mcg (5,000 cap PO 05/16/24 05/16/24 unit)-vitamin K2 100 mcg capsule Previous Rx's ?Medication ?Instructions ?Recorded albuterol sulfate 90 mcg/actuation 1 - 2 puffs inhalation Q4HP PRN 06/26/20 aerosol inhaler Shortness Of Breath #1 inh azithromycin 250 mg tablet 250 mg PO UD DOSE PK #6 tabs 07/08/24 (Zithromax) benzonatate 100 mg capsule 100 mg PO TIDP PRN Cough #30 caps 07/08/24 methylprednisolone 4 mg tablets in 4 mg PO DIRECTED 6 days #21 tabs 07/08/24 a dose pack Allergies Allergy/AdvReac Type Severity Reaction Status Date / Time pregabalin [From LYRICA] Allergy Mild Verified 05/16/24 13:47 Worker's Comp Is this a Worker's Comp case?: No [facility] Disclaimer: The information contained in this section may have been updated after the patient was seen, as this information can be updated by other users. 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 Dyspnea on exertion History of psoriasis Depression Migraine Asthma Hypertension Surgical History History of hysterectomy History of cholecystectomy History of appendectomy Family History Other Asthma COPD (chronic obstructive pulmonary disease) Cancer Diabetes Emphysema of lung Heart attack Hypertension Social History Smoking Status: Never smoker second hand exposure: Yes alcohol intake: never substance use type: denies use current occupational status: disabled Travel in the last 8 weeks: None household members: family housing: house current occupational exposures/hazards: No caffeine: Yes ROS Obtained: Yes All systems reviewed & no additional complaints except as documented Constitutional Constitutional: Reports poor appetite Eyes Eyes: Reports system reviewed and no additional complaints, except as documented ENT Ears, Nose, Mouth, and Throat: Reports as per HPI Cardiovascular Cardiovascular: Reports system reviewed and no additional complaints, except as documented and Denies chest pain Respiratory Respiratory: Denies shortness of breath, Denies chest congestion, Reports cough, Denies stridor and Denies wheezing Gastrointestinal Gastrointestingal: Reports system reviewed and no additional complaints, except as documented; Denies abdominal pain, diarrhea or vomiting Musculoskeletal Musculoskeletal: Reports system reviewed and no additional complaints, except as documented and Denies arthralgias Integumentary/Breasts Skin/Breast: Reports system reviewed and no additional complaints, except as documented and Denies rash Neurologic Neurologic: Denies paresthesias Allergic/Immunologic Allergic/Immunologic: Denies wheezing Physical Exam General General appearance: alert and in no apparent distress Eye Eye exam: Present normal appearance, PERRL and EOMI ENT ENT exam: Present mucous membranes moist and normal external ear exam Expanded ENT Exam External ear exam: Present normal external inspection TM/Canal exam: Bilateral TM: erythema and bulging Nose exam: Absent sinus tenderness Nasal speculum exam: Bilateral: normal Mouth exam: Present normal external inspection; Absent drooling Teeth exam: Present normal inspection Throat exam: Present tonsillar erythema and tonsillomegaly Neck Neck exam: Present normal inspection, full ROM and trachea midline; Absent tenderness, lymphadenopathy or thyromegaly Chest Chest inspection: Present normal inspection and symmetric chest wall rise; Absent tenderness or rash Respiratory Respiratory exam: Present normal lung sounds bilaterally; Absent respiratory distress, wheezes, stridor or accessory muscle use Cardiovascular Cardiovascular exam: Present regular rate, normal rhythm and normal heart sounds Abdominal Exam Abdominal exam: Present soft; Absent distention, tenderness, guarding, rebound or rigidity Extremities Exam Extremities exam: Present normal inspection, full ROM and normal capillary refill; Absent tenderness or calf tenderness Back Exam Back exam: Present normal inspection and full ROM; Absent tenderness Neurological Exam Neurological exam: Present alert and oriented X3 Psychiatric Psychiatric exam: Present normal affect and normal mood Skin Skin exam: Present warm, dry, intact and normal color Lymphatic Lymphatic Findings: no adenopathy Medical Decision Making Medical Records Medical records reviewed: No I reviewed the patient's medical records. Screening: Per USPSTF and CDC recommendations, given the prevalence of disease in our region, it is our hospital?s policy to screen for HIV and viral Hepatitis for all patients aged 18 and over and those with ongoing risk factors. Hermilo Inquiry Pt receiving controlled substance: No Vital Signs: 07/08/24 16:11 Temperature 98.2 F Temperature Source Oral Pulse Rate [Radial] 77 Respiratory Rate 16 Blood Pressure [Right Arm] 142/99 H Blood Pressure Mean [Right Arm] 113 Blood Pressure Source [Right Arm] Automatic Cuff Blood Pressure Position [Right Arm] Sitting 02 Sat by Pulse Oximetry 95 Oxygen Delivery Method Room Air
[2024-07-08 17:25] VITALS: BP 142/99; PULSE 77; RESP 16; TEMP 36.8; O2SAT 95
== END 2024-07-08 17:26 | disposition home or self-care (01) ==
PROVIDERS: Emergency Provider Nurse Practitioner Family; PCP Nurse Practitioner Family
DX: J20.9 Acute bronchitis, unspecified (principal); J01.90 Acute sinusitis, unspecified; H92.03 Otalgia, bilateral; R07.0 Pain in throat
CPT/HCPCS: 99212; 99214; G0463

== ENCOUNTER 2024-07-26 13:58 | Emergency (ER) | payer MEDICARE, SELFPAY ==
[2024-07-26 14:42] VITALS: BP 136/88; PULSE 91; RESP 18; TEMP 36.8; O2SAT 97; BMI 34.4
--- NOTE | 2024-07-26 15:02 | ED_ITS ---
Discharge Plan Disposition Patient Disposition: Home, Self-Care Condition: Good Prescriptions Prescriptions: New amoxicillin 875 mg tablet 875 mg PO Q12H Qty: 20 0RF benzonatate 100 mg capsule 100 mg PO TIDP PRN (Reason: Cough) Qty: 30 0RF methylprednisolone 4 mg Tablets,Dose Pack 4 mg PO DIRECTED 6 Days Qty: 21 0RF Rx Instructions: Take 1 pack as directed for 6 days No Action ibuprofen 800 mg tablet 800 mg PO Q6H PRN citalopram 10 mg tablet 10 mg PO DAILY vitamin D3-vitamin K2 125 mcg (5,000 unit)-100 mcg capsule PO alprazolam [Xanax] 0.5 mg tablet 0.5 mg PO BID lisinopril 10 mg tablet 10 mg PO DAILY albuterol sulfate 200 PUFFS HFA aerosol inhaler 1 - 2 puffs inhalation Q4HP PRN (Reason: Shortness Of Breath) Qty: 1 0RF rizatriptan 10 mg tablet,disintegrating 10 mg PO NEEDED PRN (Reason: migraines) Skyrizi 150 mg/mL pen injector 150 mg SQ . budesonide-formoterol [Symbicort] 160-4.5 mcg/actuation HFA aerosol inhaler 2 puff INHALATION BID azithromycin [Zithromax] 250 mg tablet 250 mg PO UD DOSE PK Qty: 6 0RF Rx Instructions: Take two (2) tablets today, then one (1) tablet days #2 thru #5 benzonatate 100 mg capsule 100 mg PO TIDP PRN (Reason: Cough) Qty: 30 0RF methylprednisolone 4 mg Tablets,Dose Pack 4 mg PO DIRECTED 6 Days Qty: 21 0RF Rx Instructions: Take 1 pack as directed for 6 days Referrals Follow up/Referrals: Sophia Wade APRN [Primary Care Provider] - See instructions Activity Restrictions/Add. Instructions Additional Instructions/Restrictions: Drink plenty of fluids. Take tylenol or ibuprofen for pain or fever. Take the medications as directed. Follow up with your regular doctor. GO TO THE ER FOR ANY WORSENING SYMPTOMS Clinical Impressions Clinical Impression: Sinusitis Instructions Patient Instructions: Sinusitis, Sinus Headache Print Language Print Language: Korean Discharge ED Provider: Warner Felix [facility] HPI General Stated complaint: sore throat, pain in R ear, sinus pressure Mode of Arrival: Ambulatory Source of Information: Patient Time Seen by Provider: 07/26/24 15:02 Description of Symptoms (Recalled from Triage Doc. by RN): BAD SINUS HEADACHE, EAR ACHES, SORE THROAT, BLOODY NASAL DRAINAGE, STATES WHEEZY AT TIMES HEENT Symptoms (Recalled from RN notes): Yes Resp Symptoms (Recalled from RN notes): Yes Skin Symptoms (Recalled from RN notes): No MS Symptoms (Recalled from RN notes): No Functional Status (Recalled from RN notes): WNL Related Data Home Medications ?Medication ?Instructions ?Recorded ?Confirmed alprazolam 0.5 mg tablet (Xanax) 0.5 mg PO BID nerves 11/16/18 05/16/24 lisinopril 10 mg tablet 10 mg PO DAILY Hypertension 09/20/19 05/16/24 budesonide-formoterol HFA 160 2 puff inhalation BID . 02/02/23 05/16/24 mcg-4.5 mcg/actuation aerosol inhaler (Symbicort) risankizumab-rzaa 150 mg/mL 150 mg SQ . . 02/02/23 05/16/24 subcutaneous pen injector (Skyrizi) rizatriptan 10 mg disintegrating 10 mg PO NEEDED PRN migraines 02/02/23 05/16/24 tablet citalopram 10 mg tablet 10 mg PO DAILY 02/02/24 05/16/24 ibuprofen 800 mg tablet 800 mg PO Q6H PRN 02/02/24 05/16/24 vitamin D3 125 mcg (5,000 cap PO 05/16/24 05/16/24 unit)-vitamin K2 100 mcg capsule Previous Rx's ?Medication ?Instructions ?Recorded albuterol sulfate 90 mcg/actuation 1 - 2 puffs inhalation Q4HP PRN 06/26/20 aerosol inhaler Shortness Of Breath #1 inh azithromycin 250 mg tablet 250 mg PO UD DOSE PK #6 tabs 07/08/24 (Zithromax) benzonatate 100 mg capsule 100 mg PO TIDP PRN Cough #30 caps 07/08/24 methylprednisolone 4 mg tablets in 4 mg PO DIRECTED 6 days #21 tabs 07/08/24 a dose pack amoxicillin 875 mg tablet 875 mg PO Q12H #20 tabs 07/26/24 benzonatate 100 mg capsule 100 mg PO TIDP PRN Cough #30 caps 07/26/24 methylprednisolone 4 mg tablets in 4 mg PO DIRECTED 6 days #21 tabs 07/26/24 a dose pack Allergies Allergy/AdvReac Type Severity Reaction Status Date / Time pregabalin [From LYRICA] Allergy Mild Verified 05/16/24 13:47 Worker's Comp Is this a Worker's Comp case?: No [facility] Disclaimer: The information contained in this section may have been updated after the patient was seen, as this information can be updated by other users. 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 Dyspnea on exertion History of psoriasis Depression Migraine Asthma Hypertension Surgical History History of hysterectomy History of cholecystectomy History of appendectomy Family History Other Asthma COPD (chronic obstructive pulmonary disease) Cancer Diabetes Emphysema of lung Heart attack Hypertension Social History Smoking Status: Never smoker second hand exposure: Yes alcohol intake: never substance use type: denies use current occupational status: disabled Travel in the last 8 weeks: None household members: family housing: house current occupational exposures/hazards: No caffeine: Yes ROS Obtained: Yes All systems reviewed & no additional complaints except as documented Constitutional Constitutional: Reports poor appetite Eyes Eyes: Reports system reviewed and no additional complaints, except as documented ENT Ears, Nose, Mouth, and Throat: Reports as per HPI Cardiovascular Cardiovascular: Reports system reviewed and no additional complaints, except as documented and Denies chest pain Respiratory Respiratory: Denies shortness of breath, Denies chest congestion, Reports cough, Denies stridor and Denies wheezing Gastrointestinal Gastrointestingal: Reports system reviewed and no additional complaints, except as documented; Denies abdominal pain, diarrhea or vomiting Musculoskeletal Musculoskeletal: Reports system reviewed and no additional complaints, except as documented and Denies arthralgias Integumentary/Breasts Skin/Breast: Reports system reviewed and no additional complaints, except as documented and Denies rash Neurologic Neurologic: Denies paresthesias Allergic/Immunologic Allergic/Immunologic: Denies wheezing Physical Exam General General appearance: alert and in no apparent distress Eye Eye exam: Present normal appearance, PERRL and EOMI ENT ENT exam: Present mucous membranes moist and normal external ear exam Expanded ENT Exam External ear exam: Present normal external inspection TM/Canal exam: Bilateral TM: erythema and bulging Nose exam: Absent sinus tenderness Nasal speculum exam: Bilateral: normal Mouth exam: Present normal external inspection; Absent drooling Teeth exam: Present normal inspection Throat exam: Present tonsillar erythema and tonsillomegaly Neck Neck exam: Present normal inspection, full ROM and trachea midline; Absent tenderness, lymphadenopathy or thyromegaly Chest Chest inspection: Present normal inspection and symmetric chest wall rise; Absent tenderness or rash Respiratory Respiratory exam: Present normal lung sounds bilaterally; Absent respiratory distress, wheezes, stridor or accessory muscle use Cardiovascular Cardiovascular exam: Present regular rate, normal rhythm and normal heart sounds Abdominal Exam Abdominal exam: Present soft; Absent distention, tenderness, guarding, rebound or rigidity Extremities Exam Extremities exam: Present normal inspection, full ROM and normal capillary refill; Absent tenderness or calf tenderness Back Exam Back exam: Present normal inspection and full ROM; Absent tenderness Neurological Exam Neurological exam: Present alert and oriented X3 Psychiatric Psychiatric exam: Present normal affect and normal mood Skin Skin exam: Present warm, dry, intact and normal color Lymphatic Lymphatic Findings: no adenopathy Medical Decision Making Medical Records Medical records reviewed: No I reviewed the patient's medical records. Screening: Per USPSTF and CDC recommendations, given the prevalence of disease in our region, it is our hospital?s policy to screen for HIV and viral Hepatitis for all patients aged 18 and over and those with ongoing risk factors. Hermilo Inquiry Pt receiving controlled substance: No Vital Signs: 07/26/24 14:42 Temperature 98.3 F Temperature Source Oral Pulse Rate [Left Radial] 91 H Respiratory Rate 18 Blood Pressure [Left Arm] 136/88 Blood Pressure Mean [Left Arm] 104 02 Sat by Pulse Oximetry 97
[2024-07-26 15:22] VITALS: BP 136/88; PULSE 91; RESP 18; TEMP 36.8
== END 2024-07-26 15:28 | disposition home or self-care (01) ==
PROVIDERS: Emergency Provider Nurse Practitioner Family; PCP Nurse Practitioner Family
DX: J01.90 Acute sinusitis, unspecified (principal)
CPT/HCPCS: 87635; 99213; G0381

== ENCOUNTER 2025-04-03 15:40 | Outpatient (CLI) | payer MEDICARE, SELFPAY ==
--- OUTSIDE RECORDS SUMMARY | 2025-04-03 15:43 | XMS_ITS | Encounter Summary ---
Author Organization [facility] Address [address] [place] [address] Care Team Providers Care Cushion Filler Name Role Phone Adamaris Travis CAS Primary Care Provider [phone] Reason for Referral * Consultation (Routine) - Authorized Specialty Diagnoses / Procedures Referred By Sindi sow Referred To Contact Rheumatology Diagnoses Antinuclear factor positive Martine Calderón APRN [address] [place] [address] Phone: tel: fax: Referral ID Status Reason Start Date Expiration Date Visits Requested Visits Authorized [id number] Authorized Specialty Services Required 3 04/08/2025 1 1 Encounter Details Date Type Department Care Team (Late st Contact Info) Description 10/08/2023 Community Orders Community Practice [address] [place] [address] Martine Calderón APRN [address] [place] [address] Antinuclear factor positive (Primary Dx) Social History Tobacco Use Types Packs/Day Years Used Date Smoking Tobacco: Never Assessed Comments Unknown Sex and Gender Information Value Date Recorded Sex Assigned at Female 10/08/2023 11:44 AM EST Legal Sex Female 8:31 PM EDT Gender Identity Female 10/08/2023 11:44 AM EST Sexual Orientation Not on file documented as of this encounter Plan of Treatment Scheduled Referrals Name Type Priority Associated Diagnoses Order Schedule Ambulatory referral to Rheumatology Outpatient Referral Routine Antinuclear factor positive Expected: 10/08/2023 (Approximate), Expires: 04/08/2025 documented as of this encounter Visit Diagnoses Diagnosis Antinuclear factor positive- Primary documented in this encounter Care Teams Cushion Filler Relationship Specialty Start Date End Date Adamaris Travis APRN Replaced by [facility] [place] [address] PCP - General 02/28/21 documented as of this encounter
--- OUTSIDE RECORDS SUMMARY | 2025-04-03 15:44 | XMS_ITS | Clinical Summary ---
Author Organization Healthcare Address [address] [place] [address] Care Team Providers Care Supply Chain Vice President Name Role Phone Adamaris Travis CAS Primary Care Provider [phone] Social History Tobacco Use Types Packs/Day Years Used Date Smoking Tobacco: Never Assessed Comments Unknown Sex and Gender Information Value Date Recorded Sex Assigned at Female 10/08/2023 11:44 AM EST Legal Sex Female 8:31 PM EDT Gender Identity Female 10/08/2023 11:44 AM EST Sexual Orientation Not on file Plan of Treatment Health Maintenance Due Date Last Done Comments Dental Oral Exam 1973 Dental Prophylaxis 1973 Dental X-Ray: Full Mouth 1973 [facility]-Depression Screening 1973 [facility]-Infant/Child/Adol SDOH Screenings 1973 [facility]- SDOH Screenings 1991 [facility]-Adult SDOH Screenings 1991 [facility]-DTaP,Tdap,and Td Vaccine s (1 - Tdap) 1992 [facility]-Hepatitis B Vaccines (1 of 3 - 19+ 3-dose series) 1992 [facility]-Pap Smear 1994 Dental X-Ray: Bitewings 04/18/1997 04/17/1996 [facility]-Cervical Cancer Screening 2003 [facility]-HPV/Cotest 2003 CT Colonography 2018 Colonoscopy 2018 FIT-DNA 2018 FIT 2018 FOBT 2018 Sigmoidoscopy 2018 [facility]-Colorectal Cancer Screening 2018 [facility]-Pneumococcal Vaccine: 50 + Years (1 of 1 - PCV) 2023 [facility]-Zoster Vaccines (1 of 2) 2023 [id number]-18 Vaccine (1 - 20 24-25 season) 2024 [facility]-Influenza Vaccine (Seas[place] n Ended) 2025 HPV Vaccines Aged Out No longer eligi ble based on patient's age to complete this topic [facility]-HIB Vaccines Aged Out No longer e ligible based on patient's age to complete this topic [facility]-Hepatitis A Vaccines Aged Out No longer eligible based on patient's age to complete this topic [facility]-IPV Vaccines Aged Out No longer e ligible based on patient's age to complete this topic [facility]-Rotavirus Vaccines Aged Out No lo nger eligible based on patient's age to complete this topic Procedures Procedure Name Priority Date/Time Associated Diagnosis Comments BITEWINGS - 4 RADIOGRAPHIC IMAGES Routine 04/17/1996 12:00 AM EDT from Last 3 Months or Most Recently Relevant to Health Maintenance Care Teams Supply Chain Vice President Relationship Specialty Start Date End Date Adamaris Travis APRN [address] [place] [address] PCP - General 02/28/21
[2025-04-03 16:39] LABS: Basophils # 0.1 K/mm3 (0-0.2); Basophils % 0.9 % (0.1-2.0); Eosinophils # 0.2 Kmm3 (0.0-0.4); Eosinophils % 1.8 % (0.1-12.0); Hematocrit 45.8 % (37.0-47.0); Hemoglobin 14.8 g/dL (12.2-16.2); Immature Granulocytes # 0.02 10^3uL; Immature Granulocytes % 0.2 %; Lymphocytes # 2.8 K/mm3 (0.7-4.5); Lymphocytes % 32.3 % (10-50); Mean Corpuscular HGB Conc 32.3 g/dL (31.8-35.4); Mean Corpuscular Hemoglobin 29.1 pg (27.0-31.2); Mean Platelet Volume 8.7 fl (7.4-10.4); Monocytes # 0.5 K/mm3 (0.1-1.0); Neutrophils % 58.8 % (37.0-80.0); Nucleated Red Blood Cells # 0 10^3/uL; Nucleated Red Blood Cells % 0 %; Platelet Count 388 K/mm3 (142-424); Red Blood Count 5.09 M/mm3 (4.20-5.40); Red Cell Distribution Width 12.9 % (11.5-17.5); Red Cell Distribution Width-SD 42.4 fL; White Blood Count 8.5 K/mm3 (4.8-10.8)
[2025-04-03 16:56] LABS: D-Dimer 0.58 ug/mL (0.0-0.5)
[2025-04-03 17:40] LABS: Alanine Aminotransferase 23 U/L (12-78); Albumin Level 3.7 g/dl (3.5-5.0); Alkaline Phosphatase 61 U/L (38-126); Anion Gap 7.6 mEq/L (5-15); Aspartate Amino Transferase 29 U/L (14-36); Bilirubin,Direct 0.3 mg/dl (0.0-0.4); Bilirubin,Indirect 0.4 mg/dL (0.0-0.9); Bilirubin,Total 0.7 mg/dl (0.2-1.3); Bilirubin,Unconjugated 0.4 mg/dL (0.0-1.1); Blood Urea Nitrogen 8 mg/dl (7-17); Calcium 9.4 mg/dl (8.4-10.2); Carbon Dioxide 31 mmol/L (22.0-30.0); Chloride 105 mmol/L (98-107); Chol/HDL Ratio 5.4 (1-3.5); Cholesterol 274 mg/dl (140-200); Estimated Glomerular Filt Rate 76 ml/min (>60); GFR (African American) 92 ML/MIN (>60); Glucose 93 mg/dl (74-100); HDL Cholesterol 51 mg/dl (40-60); Magnesium 2.1 mg/dl (1.6-2.3); Potassium 4.6 mmoL/L (3.5-5.1); Sodium 139 mmol/L (136-145); Total Protein,Serum 6.7 g/dl (6.3-8.2); Triglycerides 202 mg/dl (30-150); VLDL Cholesterol 40 mg/dL (0-40)
[2025-04-03 18:10] LABS: Thyroid Stimulating Hormone 1.79 uIU/mL (0.465-4.68)
== END 2025-04-03 23:59 | disposition home or self-care (01) ==
LOC: LAB 15:41
PROVIDERS: PCP Nurse Practitioner; Visit Provider Nurse Practitioner
DX: I34.0 Nonrheumatic mitral (valve) insufficiency (principal); I11.9 Hypertensive heart disease without heart failure; K21.9 Gastro-esophageal reflux disease without esophagitis; R94.31 Abnormal electrocardiogram [ECG] [EKG]; Z82.49 Family history of ischemic heart disease and other diseases of the circulatory system
CPT/HCPCS: 36415; 80048; 80061; 80076; 83735; 83883; 84443; 85025; 85378

== ENCOUNTER 2025-04-04 06:33 | Outpatient (CLI) | payer MEDICARE, SELFPAY ==
--- NOTE | 2025-04-04 | CA_ITS ---
APPROVED REPORT Exam: Pharmacologic Technologist: Peggy Stone Ht: 5 ft 3 in Wt: 216 lbs BSA: 2.00 m2 Medical History Medications: alprazolan, symbicort, citalopram, ibuprofen, lisinopril, zofran, skyrizi Stress Test Details Test: Lexiscan Reason for pharmacologic stress test: physical limitation. HR Resting HR: 81 bpm Max Heart Rate (APMHR): 169.022028 bpm Max HR Achieved: 127 bpm Target HR (85% APMHR): 143.318228 bpm % of APMHR: 75.15 Recovery HR: 98 bpm BP Resting BP: 153.0/82.0 mmHg Max BP: 155.0/99.0 mmHg Recovery BP: 155.0/99.0 mmHg ECG Stress ECG Conclusion Symptoms: SOB with Lexiscan. Sharp CP with Lexiscan. Arrhythmias/Ectopy: None. ST-T Changes: Unremarkable with Lexiscan. Electronically signed by : Caroline Lackey MD 04/06/2025 15:36:21
--- NOTE | 2025-04-04 06:30 | NM_ITS ---
APPROVED REPORT Exam: Nuclear Stress Test Indication: Chest pain, SOB, Fatigue, HTN, High cholesterol, Family history Patient Location: Outpatient Stress Tech: Peggy Pichardo [place] Tech:Mayra Milner, ARRT, RT (R)(N) Ht: 5 ft 5 in Wt: 216 lbs Bra Size: C HR: 79 bpm BP: 153/82 mmHg BSA: 2.04 m2 TID: 0.94 BMI: 35.9 History: Chest pain, SOB, Fatigue, HTN, High cholesterol, Family history Procedure: Patient received 0.4 mg of intravenous Lexiscan, resting heart rate 79 bpm, resting blood pressure 153/82 mmHg, with Lexiscan maximum heart rate achieved was 127 bpm which is % of the maximum predicted heart rate and blood pressure was 155/99 mmHg. With Lexiscan, patient denied any complaint of chest pain. Cardiac Stress and Resting SPECT Images: Cardiac Stress and Resting SPECT images were obtained using technetium 99m Myoview 29.2 mCi stress and 10.48 mCi at rest. Resting and stress imaging in supine and prone positions demonstrate no evidence of fixed or reversible perfusion defects. Gated imaging demonstrates normal global LV systolic function. LVEF is calculated at 69%. Conclusion: No evidence of fixed or reversible perfusion defects. Gated imaging demonstrates normal global LV systolic function. LVEF is calculated at 69%. Electronically signed by : Caroline Lackey MD 04/04/2025 23:04:05
--- OUTSIDE RECORDS SUMMARY | 2025-04-04 06:37 | XMS_ITS | Encounter Summary ---
Author Organization [facility] Address [address] [place] [address] Care Team Providers Care Divine Healer Name Role Phone Adamaris Travis CAS Primary Care Provider Reason for Referral * Consultation (Routine) - Authorized Specialty Diagnoses / Procedures Referred By Sindi sow Referred To Contact Rheumatology Diagnoses Antinuclear factor positive Martine Calderón APRN [address] [place] [address] Phone: tel: fax: Referral ID Status Reason Start Date Expiration Date Visits Requested Visits Authorized [id number] Authorized Specialty Services Required 3 04/08/2025 1 1 Encounter Details Date Type Department Care Team (Late st Contact Info) Description 10/08/2023 Community Orders Community Practice [address] [place] [address] Martine Calderón APRN [address] [place] [address] Antinuclear factor positive (Primary Dx) Social History [...] Primary documented in this encounter Care Teams Divine Healer Relationship Specialty Start Date End Date Adamaris Travis APRN [facility] [place] [address] PCP - General 02/28/21 documented as of this encounter
--- OUTSIDE RECORDS SUMMARY | 2025-04-04 06:37 | XMS_ITS | Clinical Summary ---
Author Organization Healthcare Address [address] [place] [address] Care Team Providers Care Veterinary Pharmacologist Name Role Phone Adamaris Travis CAS Primary Care Provider [phone] Social History Tobacco Use Types Packs/Day Years [...] 2023 [facility]-Zoster Vaccines (1 of 2) 2023 [id number]-23 Vaccine (1 - 20 24-25 season) 2024 [...] Recently Relevant to Health Maintenance Care Teams Veterinary Pharmacologist Relationship Specialty Start Date End Date Adamaris Travis APRN [address] [place] [address] PCP - General 02/28/21
[2025-04-04] MEDS: REGADENOSON 0.4MG/5ML SYRINGE 0.4 MG IV (09:28)
[2025-04-04] MEDS: ISOTOPE MYOVIEW (PER STUDY) 1 DOSE IV (09:28)
[2025-04-04] MEDS: SODIUM CHLORIDE 0.9% 10ML SYR (RAD ONLY) 10 ML IV ×2 (09:28)
--- NOTE | 2025-04-04 09:30 | CA_ITS ---
APPROVED REPORT EXAM: Comprehensive 2D, Doppler, and color-flow Echocardiogram Band Cutter: Esther Magdaleno RVT Ht: 5 ft 3 in Wt: 216lbs BSA: 2.00 BP: 154/107 mmHg Indications: DYSPENA,CHEST PAIN 2D Dimensions IVSd 1.22 cm F: 0.6-1.0 LVEF (Visual) 57.50 % PWd 1.03 cm F: 0.6 - 1.0 LA Volume 23.00 mL LVDd 3.59 cm F: 3.9 - 5.3 LA Volume Index 11.50 mL/m2 (M/F) 16-34 LVDs 2.53 cm F: 2.2 - 3.5 M-Mode Dimensions LA Diam 4.12 cm (1.9-4.0) TAPSE 2.17 (<1.7) LV Diastology E Decel Time 150 (160-240 msec) E/A Ratio 0.7 Aortic Valve BAIRON Index 1.40 cm2/m2 AoV Peak Kan. 105.0 (50-130 cm/s) AO Peak GR. 4.40 mmHg AO Mean GR. 2.60 (<5 mmHg) AO VTI 19.8 (18-25 cm) BAIRON (VTI) 2.87 (2.5-4.5 cm2) Mitral Valve MV E Max Kan. 65.0 (40-130 cm/s) MV A Velocity 91.0 (40-130 cm/s) E/A Ratio 0.71 MV PHT 44.0 ms Pulmonary Valve PV Peak Velocity 50.0 (50-150 cm/s) Left Ventricle The left ventricle is normal size. The left ventricular systolic function is normal. The left ventricular ejection fraction is within the normal range. There is increased LV wall thickness. There is normal LV segmental wall motion. The left ventricular diastolic function is normal. LVEF is 60%. Right Ventricle The right ventricle is normal size. The right ventricular systolic function is normal. Atria The left atrium size is normal. The right atrium size is normal. There is no Doppler evidence of interatrial shunt. Aortic Valve The aortic valve opens well. There is no aortic valvular stenosis. No aortic regurgitation is present. Mitral Valve The mitral valve is normal in structure. No evidence of mitral valve stenosis. Mild mitral regurgitation. Tricuspid Valve Tricuspid valve is grossly normal in structure and function. Trace tricuspid regurgitation. There is insufficient TR jet to estimate RVSP. Pulmonic Valve The pulmonary valve is normal in structure. Trace pulmonic regurgitation. Great Vessels The aortic root is normal in size. The ascending aorta is normal in size. IVC is normal in size and collapses >50% with inspiration. Pericardium There is no pericardial effusion. Other Information Study Quality: Fair Conclusion Normal biventricular systolic function. Mild MR. Electronically signed by : Caroline Lackey MD 04/04/2025 11:30:23
== END 2025-04-04 23:59 | disposition home or self-care (01) ==
PROVIDERS: PCP Nurse Practitioner; Visit Provider Nurse Practitioner
DX: I34.0 Nonrheumatic mitral (valve) insufficiency (principal); I10 Essential (primary) hypertension; E78.00 Pure hypercholesterolemia, unspecified; R94.31 Abnormal electrocardiogram [ECG] [EKG]; Z82.49 Family history of ischemic heart disease and other diseases of the circulatory system
CPT/HCPCS: 78452; 93017; 93018; 93306; A9502; J2785

== ENCOUNTER 2025-04-04 10:00 | Emergency (ER) | payer MEDICARE, SELFPAY ==
--- NOTE | 2025-04-04 10:02 | ED_ITS ---
<Statement entered by Shira Rincon MD - 04/04/25 15:19> I was consulted by the MARLENE, and we discussed the complexity of the problems being addressed. I approved the treatment and management plan for this patient's care in the emergency department, thus performing a substantive portion of the medical decision making. Shira Rincon MD, MARLENY, FACEP Discharge Plan Disposition Patient Disposition: Home, Self-Care Condition: Good Prescriptions Prescriptions: No Action ibuprofen 800 mg tablet 800 mg PO Q6H PRN citalopram 10 mg tablet 10 mg PO DAILY ondansetron HCl 4 mg tablet 4 mg PO PRN Patient Comments: TAKE 1 TABLET BY MOUTH EVERY 6 HOURS NEEDED FOR NAUSEA OR VOMITING alprazolam 0.5 mg tablet 0.5 mg PO BID Patient Comments: TAKE 1 TABLET BY MOUTH TWICE DAILY rosuvastatin [Crestor] 40 mg tablet 40 mg PO DAILY Qty: 30 2RF lisinopril 10 mg tablet 10 mg PO DAILY Skyrizi 150 mg/mL pen injector 150 mg SQ . budesonide-formoterol [Symbicort] 160-4.5 mcg/actuation HFA aerosol inhaler 2 puff INHALATION BID Referrals Follow up/Referrals: Martine Calderón APRN [Primary Care Provider, Medical] - See instructions Kiah Pereira DPM [Staff Physician, Podiatry] - See instructions Activity Restrictions/Add. Instructions Additional Instructions/Restrictions: I recommend taking Tylenol 1000 mg alternating every 4 hours with 800 mg of Motrin for pain and swelling as well as ice to the affected area at least 3 times a day. I have referred you to the foot and ankle specialist for further evaluation should you have continued discomfort. Please call to make your appointment. If you have any persistent new or worsening signs or symptoms follow-up with your PCP return to the ER as needed. Clinical Impressions Clinical Impression: Foot pain, right Print Language Print Language: Vietnamese Discharge ED Provider: Shira Rincon General Adult HPI General Chief complaint: Extremity Injury, Lower Stated complaint: Right foot pain w/swelling over 1mth Time Seen by Provider: 04/04/25 10:02 History of Present Illness HPI narrative: Patient presents for evaluation of right foot pain. Patient states that she has had about a month of pain located at the base of the fifth metatarsal. Patient reports that she has no known trauma however she first noticed it while mowing grass. She describes it as a burning sensation but has no loss of motor or sensory. She denies any aggravating or relieving factors. Denies any fever chills hemoptysis hematochezia melena nausea vomiting diarrhea. Related Data Home Medications ?Medication ?Instructions ?Recorded ?Confirmed lisinopril 10 mg tablet 10 mg PO DAILY Hypertension 09/20/19 04/03/25 budesonide-formoterol HFA 160 2 puff inhalation BID . 02/02/23 04/03/25 mcg-4.5 mcg/actuation aerosol inhaler (Symbicort) risankizumab-rzaa 150 mg/mL 150 mg SQ . . 02/02/23 subcutaneous pen injector (Skyrizi) citalopram 10 mg tablet 10 mg PO DAILY 02/02/2403/18 ibuprofen 800 mg tablet 800 mg PO Q6H PRN 02/02/24 0 04/03/25 alprazolam 0.5 mg tablet 0.5 mg PO BID 04/03/2504/03 ondansetron HCl 4 mg tablet 4 mg PO PRN 04/03/2504/03 Previous Rx's ?Medication ?Instructions ?Recorded rosuvastatin 40 mg tablet (Crestor) 40 mg PO DAILY #30 tabs 04/04/25 Allergies Allergy/AdvReac Type Severity Reaction Status Date / Time pregabalin (From LYRICA) Allergy Mild Verified 04/03/25 15:13 [facility] Disclaimer: The information contained in this section may have been updated after the patient was seen, as this information can be updated by other users. 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 Dyspnea on exertion History of psoriasis Depression Migraine Asthma Hypertension Surgical History History of hysterectomy History of cholecystectomy History of appendectomy Family History Other Asthma COPD (chronic obstructive pulmonary disease) Cancer Diabetes Emphysema of lung Heart attack Hypertension Social History Smoking Status: Never smoker second hand exposure: Yes alcohol intake: never substance use type: denies use current occupational status: disabled Travel in the last 8 weeks?: None household members: family housing: house current occupational exposures/hazards: No caffeine: Yes Have you lived/traveled outside US in past 30 days?: No Contact w/someone who lives/traveled outside US past 30 days?: No Exposure to someone with infectious disease in past 14 days?: No Do you have a fever (greater than 100.4 F or 38 C)?: No Have you tested positive for COVID-19?: No Exposed to someone with COVID-19 in past 14 days?: No Do you have a sore throat?: No Do you have a cough?: No Do you have any weakness?: No Do you have any diarrhea?: No Are you experiencing any unusual bleeding?: No Do you have any muscle aches/pain?: No Do you have any abdominal pain?: No Are you experiencing loss of taste or smell?: No Other Medical History Have you received the Flu Vaccine for this season: No Have you received the Pneumonia Vaccine: No ROS Obtained: Yes Systems reviewed as appropriate & no additional complaints except as documented Physical Exam General General appearance: alert and in no apparent distress Respiratory Respiratory exam: Present normal lung sounds bilaterally Cardiovascular Cardiovascular exam: Present regular rate Neurological Exam Neurological exam: Present alert and oriented X3 Medical Decision Making Medical Records Medical records reviewed: Yes I reviewed the patient's medical records. Screening: Per USPSTF and CDC recommendations, given the prevalence of disease in our region, it is our hospital?s policy to screen for HIV and viral Hepatitis for all patients aged 18 and over and those with ongoing risk factors. Hermilo Inquiry Pt receiving controlled substance: No Vital Signs: 04/04/25 10:13 Temperature 97.9 F Temperature Source Oral Pulse Rate [Left Radial] 105 H Respiratory Rate 20 Blood Pressure [Right Arm] 160/99 H Blood Pressure Mean [Right Arm] 119 02 Sat by Pulse Oximetry 95 Oxygen Delivery Method Room Air Orders (Tests/Meds): ORDERS Category Date Time Status Foot XR right minimum 3 views [XR foot RT min 3V] Stat Exams 04/04/25 10:06 Taken Medical Decision Narrative: In summary patient is a 49-year-old female who presents to the emergency department for evaluation of right foot pain. Patient is dynamically stable up on arrival, afebrile. Physical exam is remarkable for tenderness to palpation at the base of the fifth metatarsal primarily laterally. There is no palpable bony deformity erythema edema contusions abrasions noted. Patient's neurovascular intact distally.. Differential diagnosis includes tendinitis versus stress fracture versus occult fracture etc. Initial workup will be conducted with plain film x-rays.. Initial interventions were considered however patient is already taken Tylenol Motrin today. Initial workup reviewed by me and my informal interpretation of her x-ray shows no acute bony abnormality but does show some soft tissue swelling around the base of the fifth metatarsal. Given this I have recommended the patient continue conservative and supportive measures including Tylenol alternating every 4 hours with ibuprofen along with ice to the affected area. I am referring her to podiatry for further evaluation for possible tendinitis. If patient has persistent new or worsening signs or symptoms she can follow-up PCP return to the ER as needed. Critical Care Critical Care Time Critical Care Time: No
--- NOTE | 2025-04-04 10:06 | XR_ITS ---
FINAL REPORT CLINICAL HISTORY: Atraumatic pain at the base of the fifth metatarsa COMPARISON: None FINDINGS: RIGHT FOOT 3 views of the right foot were obtained. There is no acute fracture or dislocation. Visualized joint spaces are normally aligned. There is a moderate plantar spur. Soft tissues are unremarkable. IMPRESSION: No acute bony abnormality. Reviewed, Interpreted and Dictated by Severiano Lara MD Transcribed by Ria Dillard Authenticated and [facility]
[2025-04-04 10:13] VITALS: BP 160/99; PULSE 105; RESP 20; TEMP 36.6; O2SAT 95; BMI 35.9
--- OUTSIDE RECORDS SUMMARY | 2025-04-04 10:16 | XMS_ITS | Encounter Summary ---
Author Organization [facility] Address [address] [place] [address] Care Team Providers Care Market Research Consultant Name Role Phone Adamaris Travis CAS Primary Care Provider [phone] Reason for Referral * Consultation (Routine) - Authorized Specialty Diagnoses / Procedures Referred By Sindi sow Referred To Contact Rheumatology Diagnoses Antinuclear factor positive Martine Calderón APRN [address] [place] [address] Phone: tel: fax: Referral ID Status Reason Start Date Expiration Date Visits Requested Visits Authorized [id number] Authorized Specialty Services Required 3 04/08/2025 1 1 Encounter Details Date Type Department Care Team (Late st Contact Info) Description 10/08/2023 Community Orders [facility] [address] [place] [address] Martine Calderón APRN [address] [place] [address] Antinuclear factor positive (Primary Dx) Social History [...] Primary documented in this encounter Care Teams Market Research Consultant Relationship Specialty Start Date End Date Adamaris Travis APRN [facility] [place] [address] PCP - General 02/28/21 documented as of this encounter
--- OUTSIDE RECORDS SUMMARY | 2025-04-04 10:16 | XMS_ITS | Clinical Summary ---
Author Organization Healthcare Address [address] [place] [address] Care Team Providers Care Planishing Press Operator Name Role Phone Adamaris Travis CAS Primary Care Provider [phone] Social History Tobacco Use Types Packs/Day Years [...] 2023 [facility]-Zoster Vaccines (1 of 2) 2023 [id number] Vaccine (1 - 20 24-25 season) 2024 [...] Recently Relevant to Health Maintenance Care Teams Planishing Press Operator Relationship Specialty Start Date End Date Adamaris Travis APRN [address] [place] [address] PCP - General 02/28/21
[2025-04-04 10:30] VITALS: BP 134/94; PULSE 96; RESP 18; O2SAT 98
[2025-04-04 11:14] VITALS: BP 140/78; PULSE 80; RESP 20; TEMP 36.8; O2SAT 98
== END 2025-04-04 11:15 | disposition home or self-care (01) ==
PROVIDERS: Emergency Provider Student in an Organized Health Care Education/Training Program; PCP Nurse Practitioner
DX: M79.671 Pain in right foot (principal)
CPT/HCPCS: 73630; 99283

== ENCOUNTER 2025-04-05 14:34 | Outpatient (CLI) | payer MEDICARE, SELFPAY ==
--- OUTSIDE RECORDS SUMMARY | 2025-04-05 14:38 | XMS_ITS | Encounter Summary ---
Author Organization [facility] Address [address] [place] [address] Care Team Providers Care Analyst Food And Beverage Name Role Phone Adamaris Travis CAS Primary Care Provider [phone] Reason for Referral * Consultation (Routine) - Authorized Specialty Diagnoses / Procedures Referred By Sindi sow Referred To Contact Rheumatology Diagnoses Antinuclear factor positive Martine Calderón APRN [address] [place] [address] Phone: tel: fax: Referral ID Status Reason Start Date Expiration Date Visits Requested Visits Authorized [id number] Authorized Specialty Services Required 3 04/08/2025 1 1 Encounter Details Date Type Department Care Team (Late st Contact Info) Description 10/08/2023 Community Orders Community Practice [address] [place] [address] Martine Calderón APRN [address] [place] [address] Antinuclear factor positive (Primary Dx) Social History [...] Primary documented in this encounter Care Teams Analyst Food And Beverage Relationship Specialty Start Date End Date Adamaris Travis APRN [facility] [place] [address] PCP - General 02/28/21 documented as of this encounter
--- OUTSIDE RECORDS SUMMARY | 2025-04-05 14:38 | XMS_ITS | Clinical Summary ---
Author Organization Healthcare Address [address] [place] [address] Care Team Providers Care Medtronics Technician Name Role Phone Adamaris Travis CAS Primary Care Provider [phone] Social History Tobacco Use Types Packs/Day Years [...] 2023 [facility]-Zoster Vaccines (1 of 2) 2023 [id number] Vaccine (1 - 20 24-25 season) 2024 [...] Recently Relevant to Health Maintenance Care Teams Medtronics Technician Relationship Specialty Start Date End Date Adamaris Travis APRN [address] [place] [address] PCP - General 02/28/21
[2025-04-05] MEDS: SODIUM CHLORIDE 0.9% 10ML SYR (RAD ONLY) 10 ML IV (14:56)
[2025-04-05] MEDS: 0.9 % SODIUM CHLORIDE 50 ML VIAL IV (14:56)
[2025-04-05] MEDS: IOPAMIDOL-370 (76%);100ML BOTTLE 85 ML IV (14:56)
--- NOTE | 2025-04-05 15:00 | CT_ITS ---
FINAL REPORT TECHNIQUE: The patient was injected with IV contrast. Axial images were obtained through the chest in a PE protocol. 3-D reconstruction images were also performed. Individualized dose reduction techniques using automated exposure control or adjustment of the MA and/or KV according to patient's size were employed. CLINICAL HISTORY: Chest pain COMPARISON: 09/04/2019 FINDINGS: Mediastinal vasculature is adequately opacified. No pulmonary artery filling defects are identified to suggest PE. There is no aortic measures 3.3 cm without evidence of dissection. There is no axillary adenopathy. There is no hilar or mediastinal adenopathy. The heart size is normal. There is no pericardial or pleural effusion. Limited images of the upper abdomen are unremarkable. The gallbladder is surgically absent. No suspicious infiltrate or nodule is identified. Scarring is noted at the right lung base. IMPRESSION: No pulmonary embolus, aneurysm, or dissection. Reviewed, Interpreted and Dictated by Severiano Lara MD Transcribed by Ria Dillard Authenticated and [facility]
== END 2025-04-05 23:59 | disposition home or self-care (01) ==
LOC: RAD 14:35
PROVIDERS: PCP Nurse Practitioner; Visit Provider Nurse Practitioner
DX: R00.0 Tachycardia, unspecified (principal); R07.9 Chest pain, unspecified
CPT/HCPCS: 71275; Q9967

== ENCOUNTER 2025-08-09 11:02 | Outpatient (CLI) | payer MEDICARE, SELFPAY ==
[2025-08-09 15:00] LABS: Coronavirus 19, PCR Not Detected (NotDetected); Influenza A, PCR Not Detected (NotDetected); Influenza B, PCR Not Detected (NotDetected)
--- OUTSIDE RECORDS SUMMARY | 2025-08-10 10:49 | XMS_ITS ---
Author Organization Unknown ENCOUNTERS Encounter Performer Location Date Diagnosis Diagnosis Status Pre Admit [facility] [address] [place] [address] [id number] Emergency [facility] [address] [facility] [address] [place] [address] [id number] KAYLA Pre Admit [facility] [address] [facility] [address] [place] [address] [id number] Emergency [facility] [address] [facility] [address] [place] [address] [id number] KAYLA Emergency [facility] [address] [place] [address] [id number] KAYLA Pre Admit [facility] [address] [place] [address] [id number] Emergency [facility] [address] [place] [address] [id number] KAYLA Emergency [facility] [address] [place] [address] [id number] KAYLA Emergency [facility] [address] [place] [address] [id number] KAYLA Emergency [facility] [address] [place] [address] [id number] KAYLA Emergency [facility] [address] [place] [address] [id number] KAYLA Emergency [facility] ([facility] [address] [place] [address] [id number] KAYLA Emergency Fatemeh [facility] [address] [place] [address] [id number] KAYLA Emergency [facility] [address] [place] [address] [id number] LWBS Emergency Chary [facility] [address] [facility] [address] [place] [address] [id number] KAYLA Emergency [facility] [place] [id number] [facility] [address] [place] [address] [id number] KAYLA *Note: Encounters from your own facility or health system may be excluded. Allergies, Adverse Reactions, Alerts Allergen Type Severity Identification Date pregabalin drug allergy 2 [id number] Medications Name Date Quantity Days Supplied [facility] Number
--- OUTSIDE RECORDS SUMMARY | 2025-08-10 10:49 | XMS_ITS | Encounter Summary ---
Author Organization Healthcare Address [address] [place] [address] Care Team Providers Care Sequins Slinger Name Role Phone Adamaris Travis APRN Primary Care Provider [phone] Encounter Details Date Type Department Care Team (Late st Contact Info) Description 10/08/2023 Community [facility] [address] [place] [address] Martine Calderón APRN [address] [place], [place] [id number] Antinuclear factor positive (Primary Dx) Social History Tobacco Use Types Packs/Day Years Used Date Smoking Tobacco: Never Assessed Comments Unknown Sex and Gender Information Value Date Recorded Sex Assigned at Female 10/08/2023 11:44 AM EST Legal Sex Female 8:31 PM EDT Gender Identity Female 10/08/2023 11:44 AM EST Sexual Orientation Not on file documented as of this encounter Plan of Treatment Not on file documented as of this encounter Visit Diagnoses Diagnosis Antinuclear factor positive- Primary documented in this encounter Care Teams Sequins Slinger Relationship Specialty Start Date End Date Adamaris Travis APRN [address] [place], [place] [id number] PCP - General 02/28/21 documented as of this encounter
--- OUTSIDE RECORDS SUMMARY | 2025-08-10 10:49 | XMS_ITS | Clinical Summary ---
Author Organization Healthcare Address [address] [place] [address] Care Team Providers Care Customer Sales Advisor Name Role Phone Adamaris Travis CAS Primary Care Provider [phone] Social History Tobacco Use Types Packs/Day Years Used Date Smoking Tobacco: Never Assessed Comments Unknown Sex and Gender Information Value Date Recorded Sex Assigned at Female 10/08/2023 11:44 AM EST Legal Sex Female 8:31 PM EDT Gender Identity Female 10/08/2023 11:44 AM EST Sexual Orientation Not on file Plan of Treatment Health Maintenance Due Date Last Done Comments [facility]-Depression Screening 1973 [facility]-/Child/Adol SDOH Screenings 1973 [facility]- SDOH Screenings 1991 [facility]-Adult SDOH Screenings 1991 [facility]-DTaP,Tdap,and Td Vaccine s (1 - Tdap) 1992 [facility]-Hepatitis B Vaccines (1 of 3 - 19+ 3-dose series) 1992 [facility]-Pap Smear 1994 [facility]-Cervical Cancer Screening 2003 [facility]-HPV/Cotest 2003 CT Colonography 2018 Colonoscopy 2018 FIT-DNA 2018 FIT 2018 FOBT 2018 Sigmoidoscopy 2018 [facility]-Colorectal Cancer Screening 2018 [facility]Y-Pneumococcal Vaccine: 50 + Years (1 of 1 - PCV) 2023 [facility]-Zoster Vaccines (1 of 2) 2023 [id number] Vaccine (1 - 20 24-25 season) 2025 [facility]-Influenza Vaccine (#1) 2025 HPV Vaccines Aged Out No longer [...] on patient's age to complete this topic Care Teams Customer Sales Advisor Relationship Specialty Start Date End Date Adamaris Travis, CAS [address] [place] [address] PCP - General 02/28/21
== END 2025-08-09 23:59 ==
LOC: LAB.DROPOF 08-10 10:42
PROVIDERS: PCP Student in an Organized Health Care Education/Training Program; Visit Provider Student in an Organized Health Care Education/Training Program
DX: J06.9 Acute upper respiratory infection, unspecified (principal)
CPT/HCPCS: 87636